=== PATIENT | male | born 1990 | race Caucasian/White ===

== ENCOUNTER 2018-01-06 23:18 | Emergency (ER) | payer MEDICARE, MEDICAID ==
[2018-01-07] MEDS: ONDANSETRON 4MG/2ML VIAL (J2405) IV (00:06)
[2018-01-07] MEDS: ACETAMINOPHEN TAB 650MG DOSE (2X325MG) PO (00:06)
[2018-01-07] MEDS: NS 1,000 ML IV (00:06)
[2018-01-07 00:33] LABS: BASO % 0.2 % (0.0-1.0); HEMATOCRIT 42.5 % (42.0-52.0); HEMOGLOBIN 14.5 g/dl (14.0-18.0); IMMATURE GRANULOCYTE % 0.5 % (0-3.0); LYMPH # 0.7 10^3/uL (1.5-6.5); LYMPH % 12.2 % (24.0-44.0); MEAN CORPUSCULAR HEMOGLOBIN 28.5 pg (27.0-33.0); MEAN CORPUSCULAR HGB CONC 34.1 g/dl (32.0-36.5); MEAN CORPUSCULAR VOLUME 83.5 fl (80.0-96.0); MONO # 0.8 10^3/uL (0.0-0.8); MONO % 13.7 % (0.0-5.0); NEUTROPHILS % 73.4 % (36.0-66.0); PLATELET COUNT, AUTOMATED 198 10^3/uL (150-450); RED BLOOD COUNT 5.09 10^6/uL (4.30-6.10); RED CELL DISTRIBUTION WIDTH 11.9 % (11.5-14.5); WHITE BLOOD COUNT 5.5 10^3/uL (4.0-10.0)
[2018-01-07 00:42] LABS: ALBUMIN 3.6 GM/DL (3.2-5.2); ALBUMIN/GLOBULIN RATIO 1.16 (1.00-1.93); ALKALINE PHOSPHATASE 75 U/L (45-117); ALT/SGPT 28 U/L (12-78); ANION GAP 11 MEQ/L (8-16); AST/SGOT 22 U/L (7-37); BILIRUBIN,DIRECT 0.2 MG/DL (0.0-0.2); BILIRUBIN,TOTAL 0.5 MG/DL (0.2-1.0); BLOOD UREA NITROGEN 18 MG/DL (7-18); CALCIUM LEVEL 8.2 MG/DL (8.5-10.1); CARBON DIOXIDE LEVEL 26 MEQ/L (21-32); CHLORIDE LEVEL 96 MEQ/L (98-107); CREATININE FOR GFR 1.07 MG/DL (0.70-1.30); GLOMERULAR FILTRATION RATE > 60.0 (>60); GLUCOSE, FASTING 89 MG/DL (70-100); LIPASE 162 U/L (73-393); POTASSIUM SERUM 3.7 MEQ/L (3.5-5.1); SODIUM LEVEL 133 MEQ/L (136-145); TOTAL PROTEIN 6.7 GM/DL (6.4-8.2)
[2018-01-07 00:44] LABS: LACTIC ACID SEPSIS PROTOCOL 1.1 MMOL/L (0.4-2.0)
[2018-01-07] MEDS ORDERED: GASTROGRAFIN SOLUTION 30ML (Q9963) As Ordered (00:55)
[2018-01-07] MEDS: GASTROGRAFIN SOLUTION 30ML PO ×2 (01:01→02:00)
[2018-01-07] MEDS ORDERED: ISOVUE-370 76% 100ML VIAL (Q9967) As Ordered (01:10)
[2018-01-07] MEDS ORDERED: METOCLOPRAMIDE INJ 10MG/2ML VIAL (J2765) As Ordered (01:29)
[2018-01-07] MEDS: METOCLOPRAMIDE INJ 10MG/2ML VIAL (J2765) IV (01:34)
[2018-01-07 03:16] LABS: KETONE, URINE AUTO RFX TRACE mg/dL (NEGATIVE); LEUKOCYTE ESTERASE UR AUTO RFX NEGATIVE (NEGATIVE); NITRITE, URINE AUTO RFX NEGATIVE (NEGATIVE); RBC, URINE AUTO RFX 2 /HPF (0-3); SPECIFIC GRAVITY UR AUTO RFX 1.025 (1.002-1.035); SQUAM EPITHELIAL CELL UR AURFX 0 /HPF (0-6); WBC, URINE AUTO RFX 1 /HPF (0-3)
== END 2018-01-07 04:45 | disposition home or self-care (01) ==
LOC: M ED 23:18
DX: K52.9 Noninfective gastroenteritis and colitis, unspecified (principal); J45.909 Unspecified asthma, uncomplicated; F12.10 Cannabis abuse, uncomplicated; Z79.899 Other long term (current) drug therapy; Z88.0 Allergy status to penicillin
CPT/HCPCS: J2405

== ENCOUNTER 2018-01-10 21:38 | Inpatient (IN) | payer MEDICARE ==
[2018-01-10 22:35] LABS: HEMOGLOBIN 13.8 g/dl (14.0-18.0); IMMATURE GRANULOCYTE % 0.6 % (0-3.0); LYMPH # 0.5 10^3/uL (1.5-6.5); LYMPH % 15.6 % (24.0-44.0); MEAN CORPUSCULAR HEMOGLOBIN 28.7 pg (27.0-33.0); MEAN CORPUSCULAR HGB CONC 35.4 g/dl (32.0-36.5); MEAN CORPUSCULAR VOLUME 81.1 fl (80.0-96.0); MONO # 0.2 10^3/uL (0.0-0.8); MONO % 5.3 % (0.0-5.0); NEUTROPHILS # 2.5 10^3/uL (1.8-7.7); NEUTROPHILS % 78.5 % (36.0-66.0); RED BLOOD COUNT 4.81 10^6/uL (4.30-6.10); RED CELL DISTRIBUTION WIDTH 11.9 % (11.5-14.5); WHITE BLOOD COUNT 3.2 10^3/uL (4.0-10.0)
[2018-01-10 22:46] LABS: ALBUMIN 2.9 GM/DL (3.2-5.2); ALBUMIN/GLOBULIN RATIO 0.85 (1.00-1.93); ALKALINE PHOSPHATASE 51 U/L (45-117); ALT/SGPT 40 U/L (12-78); ANION GAP 8 MEQ/L (8-16); AST/SGOT 63 U/L (7-37); BILIRUBIN,DIRECT 0.2 MG/DL (0.0-0.2); BILIRUBIN,TOTAL 0.5 MG/DL (0.2-1.0); BLOOD UREA NITROGEN 18 MG/DL (7-18); CALCIUM LEVEL 7.4 MG/DL (8.5-10.1); CARBON DIOXIDE LEVEL 27 MEQ/L (21-32); CHLORIDE LEVEL 93 MEQ/L (98-107); CREATININE FOR GFR 1.08 MG/DL (0.70-1.30); GLOMERULAR FILTRATION RATE > 60.0 (>60); GLUCOSE, FASTING 120 MG/DL (70-100); LIPASE 262 U/L (73-393); POTASSIUM SERUM 3.5 MEQ/L (3.5-5.1); SODIUM LEVEL 128 MEQ/L (136-145); TOTAL PROTEIN 6.3 GM/DL (6.4-8.2)
[2018-01-10 22:48] LABS: PLATELET COUNT, AUTOMATED 87 10^3/uL (150-450)
[2018-01-10 22:49] LABS: IMMATURE PLATELET FRACTION % 13.5 % (0.0-10.9)
[2018-01-10 23:16] LABS: LACTIC ACID SEPSIS PROTOCOL 1.3 MMOL/L (0.4-2.0)
[2018-01-10] MEDS: ONDANSETRON 4MG/2ML VIAL (J2405) IV (23:32)
[2018-01-10] MEDS: diphenhydrAMINE INJ 50MG/ML VIAL (J1200) IV (23:32)
[2018-01-10] MEDS: NS 1,000 ML IV (23:32)
[2018-01-10] MEDS: ACETAMINOPHEN 325 MG TAB PO (23:32)
[2018-01-10] MEDS: ALBUTEROL SULFATE 2.5 MG/0.5 ML INH NEB SOLN NEB (23:38)
[2018-01-10] MEDS ORDERED: guaiFENesin DM LIQ 10ML UD PO (23:45)
[2018-01-11] MEDS: CEFUROXIME SODIUM 1.5 GM in D5W MINI-BAG PLUS 50 ML IV (00:06)
[2018-01-11 00:19] LABS: VENOUS BASE EXCESS -2.6 (-2.0-2.0); VENOUS HCO3 22.7 MEQ/L (23.0-27.0); VENOUS O2 SATURATION 87.7 % (60.0-80.0); VENOUS PARTIAL PRESSURE CO2 41.3 mmHg (38.0-50.0); VENOUS PARTIAL PRESSURE O2 54.5 mmHg (30.0-50.0); VENOUS PH 7.358 UNITS (7.330-7.430); VENOUS STANDARD HCO3 22.1 MEQ/L
[2018-01-11] MEDS ORDERED: IBUPROFEN 800 MG TAB As Ordered (00:30)
[2018-01-11] MEDS ORDERED: IBUPROFEN 400 MG TAB As Ordered ×2 (00:31→00:57)
[2018-01-11] MEDS: IBUPROFEN 200 MG TAB PO (00:40)
[2018-01-11] MEDS ORDERED: MOXIFLOXACIN HCL 400 MG in APPROPRIATE DILUENT 1 EA IV (00:45)
[2018-01-11] MEDS: AZITHROMYCIN INJ 500 MG, VIAL MATE ADAPTER 1 EACH in D5W 250 ML IV (00:50)
[2018-01-11 00:54] LABS: INFLUENZA A AMPLIFICATION NEGATIVE (NEGATIVE); INFLUENZA B AMPLIFICATION NEGATIVE (NEGATIVE)
[2018-01-11] MEDS: IBUPROFEN 800 MG TAB PO (01:04)
[2018-01-11] MEDS: DILUENT IV (01:18)
[2018-01-11] MEDS: NS IV (01:18)
[2018-01-11] MEDS: NS 1,000 ML IV ×5 (02:42→23:37)
[2018-01-11] MEDS: metroNIDAZOLE 500 MG in APPROPRIATE DILUENT 1 EA IV ×2 (02:42→11:16)
[2018-01-11 07:15] LABS: HEMATOCRIT 34.9 % (42.0-52.0); MEAN CORPUSCULAR HEMOGLOBIN 28.7 pg (27.0-33.0); MEAN CORPUSCULAR HGB CONC 34.4 g/dl (32.0-36.5); MEAN CORPUSCULAR VOLUME 83.5 fl (80.0-96.0); RED BLOOD COUNT 4.18 10^6/uL (4.30-6.10); RED CELL DISTRIBUTION WIDTH 12.2 % (11.5-14.5)
[2018-01-11 07:16] LABS: PLATELET COUNT, AUTOMATED 87 10^3/uL (150-450)
[2018-01-11 07:41] LABS: ALBUMIN 2.4 GM/DL (3.2-5.2); ALBUMIN/GLOBULIN RATIO 0.86 (1.00-1.93); ALKALINE PHOSPHATASE 44 U/L (45-117); ALT/SGPT 48 U/L (12-78); ANION GAP 8 MEQ/L (8-16); AST/SGOT 86 U/L (7-37); BILIRUBIN,TOTAL 0.4 MG/DL (0.2-1.0); BLOOD UREA NITROGEN 12 MG/DL (7-18); CALCIUM LEVEL 6.6 MG/DL (8.5-10.1); CARBON DIOXIDE LEVEL 26 MEQ/L (21-32); CHLORIDE LEVEL 105 MEQ/L (98-107); CPK CREATINE PHOSPHOKINASE 581 U/L (39-308); CREATININE FOR GFR 0.97 MG/DL (0.70-1.30); GLOMERULAR FILTRATION RATE > 60.0 (>60); GLUCOSE, FASTING 124 MG/DL (70-100); POTASSIUM SERUM 3.4 MEQ/L (3.5-5.1); SODIUM LEVEL 139 MEQ/L (136-145); TOTAL PROTEIN 5.2 GM/DL (6.4-8.2)
[2018-01-11 07:42] LABS: CK-MB VALUE MASS 1.4 NG/ML (0.0-3.6); MB/CK RELATIVE INDEX 0.24 (< OR =4)
[2018-01-11] MEDS: LevoFLOXacin IV 500 MG in APPROPRIATE DILUENT 1 EA IV (09:29)
[2018-01-11] MEDS: ENOXAPARIN 40 MG/0.4 ML SYRINGE (J1650) SC (11:16)
[2018-01-11 13:26] LABS: REASON FOR REVIEW PLATELET MORPHOLOGY; SLIDE REVIEW Report; SOURCE PERIPHERAL SMEAR
[2018-01-11 13:42] LABS: D-DIMER QUANT 2359.4 ng/ml (<500)
[2018-01-11 13:58] LABS: CK-MB VALUE MASS 1.7 NG/ML (0.0-3.6); CPK CREATINE PHOSPHOKINASE 607 U/L (39-308); MB/CK RELATIVE INDEX 0.28 (< OR =4)
[2018-01-11] MEDS ORDERED: ISOVUE-370 76% 100ML VIAL (Q9967) As Ordered (14:20)
[2018-01-11] MEDS: AZTREONAM 2 GM in D5W MINI-BAG PLUS 50 ML IV ×2 (15:38→23:33)
[2018-01-11] MEDS: VANCOMYCIN HCL 1,000 MG, VIAL MATE ADAPTER 1 EACH in D5W 250 ML IV (16:08)
[2018-01-11] MEDS: ACETAMINOPHEN TAB 650MG DOSE (2X325MG) PO ×3 (16:09→21:38)
[2018-01-11 19:30] LABS: CPK CREATINE PHOSPHOKINASE 681 U/L (39-308); TROPONIN I 0.23 NG/ML (< 0.10)
[2018-01-11 19:44] LABS: CK-MB VALUE MASS 1.3 NG/ML (0.0-3.6); MB/CK RELATIVE INDEX 0.19 (< OR =4)
[2018-01-11] MEDS: ONDANSETRON 4 MG TAB (S0181) PO (21:10)
[2018-01-11] MEDS ORDERED: AZITHROMYCIN INJ 500 MG, VIAL MATE ADAPTER 1 EACH in D5W 250 ML IV (23:00)
[2018-01-12] MEDS: VANCOMYCIN HCL 1,000 MG, VIAL MATE ADAPTER 1 EACH in D5W 250 ML IV ×5 (00:35→23:03)
[2018-01-12 01:41] LABS: BEDSIDE GLUCOSE 102 MG/DL (70-105)
[2018-01-12] MEDS ORDERED: IPRATROPIUM 0.5MG/ALBUTEROL 2.5MG INH SOL UD 3ML (DUONEB)(J7620) NEB (01:45)
[2018-01-12 04:43] LABS: ABG BASE EXCESS -2.7 (-2.0-2.0); ABG HCO3 21.2 MEQ/L (22.0-26.0); ABG O2 SATURATION 95.8 % (95.0-99.0); ABG PARTIAL PRESSURE CO2 33.8 mmHg (35.0-45.0); ABG PARTIAL PRESSURE O2 78.2 mmHg (75.0-100.0); ABG STANDARD HCO3 22.2 MEQ/L (22.0-26.0); ABG TOTAL CO2 22.2 MEQ/L (22.0-29.0); ABG pH (ARTERIAL) 7.415 UNITS (7.350-7.450)
[2018-01-12 05:23] LABS: BEDSIDE GLUCOSE 90 MG/DL (70-105)
[2018-01-12 05:51] LABS: HEMATOCRIT 34.6 % (42.0-52.0); HEMOGLOBIN 11.8 g/dl (14.0-18.0); MEAN CORPUSCULAR HEMOGLOBIN 28.5 pg (27.0-33.0); MEAN CORPUSCULAR HGB CONC 34.1 g/dl (32.0-36.5); MEAN CORPUSCULAR VOLUME 83.6 fl (80.0-96.0); RED BLOOD COUNT 4.14 10^6/uL (4.30-6.10); RED CELL DISTRIBUTION WIDTH 12.7 % (11.5-14.5); WHITE BLOOD COUNT 2.7 10^3/uL (4.0-10.0)
[2018-01-12 05:54] LABS: IMMATURE PLATELET FRACTION % 6.3 % (0.0-10.9); PLATELET COUNT, AUTOMATED 95 10^3/uL (150-450)
[2018-01-12] MEDS: NS 1,000 ML IV ×3 (06:03→22:24)
[2018-01-12] MEDS: AZTREONAM 2 GM in D5W MINI-BAG PLUS 50 ML IV ×3 (06:03→22:24)
[2018-01-12] MEDS: ACETAMINOPHEN TAB 650MG DOSE (2X325MG) PO ×4 (06:04→23:03)
[2018-01-12 06:20] LABS: ALBUMIN 2.1 GM/DL (3.2-5.2); ALBUMIN/GLOBULIN RATIO 0.78 (1.00-1.93); ALKALINE PHOSPHATASE 41 U/L (45-117); ALT/SGPT 40 U/L (12-78); ANION GAP 9 MEQ/L (8-16); AST/SGOT 66 U/L (7-37); BILIRUBIN,TOTAL 0.3 MG/DL (0.2-1.0); BLOOD UREA NITROGEN 6 MG/DL (7-18); CALCIUM LEVEL 6.8 MG/DL (8.5-10.1); CARBON DIOXIDE LEVEL 23 MEQ/L (21-32); CHLORIDE LEVEL 107 MEQ/L (98-107); CREATININE FOR GFR 0.62 MG/DL (0.70-1.30); GLOMERULAR FILTRATION RATE > 60.0 (>60); GLUCOSE, FASTING 87 MG/DL (70-100); POTASSIUM SERUM 3.1 MEQ/L (3.5-5.1); SODIUM LEVEL 139 MEQ/L (136-145); TOTAL PROTEIN 4.8 GM/DL (6.4-8.2)
[2018-01-12] MEDS: IPRATROPIUM 0.5MG/ALBUTEROL 2.5MG INH SOL UD 3ML (DUONEB)(J7620) NEB ×4 (07:22→23:54)
[2018-01-12 08:36] LABS: MAGNESIUM LEVEL 2.3 MG/DL (1.8-2.4)
[2018-01-12] MEDS: POTASSIUM CHLORIDE 10 MEQ SR TABLET PO (08:50)
[2018-01-12 13:30] LABS: HIV 1&2 SCREEN CENTAUR NEGATIVE (NEGATIVE)
[2018-01-12 16:16] LABS: VANCOMYCIN LEVEL TROUGH 7.9 UG/ML (10.0-20.0)
[2018-01-12] MEDS: ONDANSETRON 4 MG TAB (S0181) PO (23:02)
[2018-01-12] MEDS ORDERED: ONDANSETRON 4MG/2ML VIAL (J2405) As Ordered (23:09)
[2018-01-12] MEDS: ONDANSETRON 4MG/2ML VIAL (J2405) IV (23:45)
[2018-01-13] MEDS: VANCOMYCIN HCL 1,000 MG, VIAL MATE ADAPTER 1 EACH in D5W 250 ML IV ×4 (05:31→23:31)
[2018-01-13] MEDS: NS 1,000 ML IV ×4 (05:31→22:58)
[2018-01-13] MEDS: ONDANSETRON 4MG/2ML VIAL (J2405) IV ×2 (05:36→23:25)
[2018-01-13 05:50] LABS: HEMATOCRIT 36.2 % (42.0-52.0); HEMOGLOBIN 12.3 g/dl (14.0-18.0); MEAN CORPUSCULAR HEMOGLOBIN 28.4 pg (27.0-33.0); MEAN CORPUSCULAR VOLUME 83.6 fl (80.0-96.0); PLATELET COUNT, AUTOMATED 136 10^3/uL (150-450); RED BLOOD COUNT 4.33 10^6/uL (4.30-6.10); RED CELL DISTRIBUTION WIDTH 12.7 % (11.5-14.5); WHITE BLOOD COUNT 2.8 10^3/uL (4.0-10.0)
[2018-01-13 06:05] LABS: ALBUMIN 2.2 GM/DL (3.2-5.2); ALBUMIN/GLOBULIN RATIO 0.67 (1.00-1.93); ALKALINE PHOSPHATASE 51 U/L (45-117); ALT/SGPT 39 U/L (12-78); ANION GAP 6 MEQ/L (8-16); AST/SGOT 58 U/L (7-37); BILIRUBIN,TOTAL 0.3 MG/DL (0.2-1.0); BLOOD UREA NITROGEN 3 MG/DL (7-18); CALCIUM LEVEL 7.1 MG/DL (8.5-10.1); CARBON DIOXIDE LEVEL 29 MEQ/L (21-32); CHLORIDE LEVEL 102 MEQ/L (98-107); CREATININE FOR GFR 0.72 MG/DL (0.70-1.30); GLOMERULAR FILTRATION RATE > 60.0 (>60); GLUCOSE, FASTING 97 MG/DL (70-100); POTASSIUM SERUM 3.3 MEQ/L (3.5-5.1); SODIUM LEVEL 137 MEQ/L (136-145); TOTAL PROTEIN 5.5 GM/DL (6.4-8.2)
[2018-01-13] MEDS: AZTREONAM 2 GM in D5W MINI-BAG PLUS 50 ML IV (06:35)
[2018-01-13] MEDS: IPRATROPIUM 0.5MG/ALBUTEROL 2.5MG INH SOL UD 3ML (DUONEB)(J7620) NEB ×2 (07:18→16:35)
[2018-01-13] MEDS: IBUPROFEN 200 MG TAB PO (08:09)
[2018-01-13 10:08] LABS: LACTIC ACID SEPSIS PROTOCOL 1.8 MMOL/L (0.4-2.0)
[2018-01-13 10:08] LABS: C REACTIVE PROTEIN QUANTITATIV 9.37 MG/DL (0.00-0.30); CPK CREATINE PHOSPHOKINASE 579 U/L (39-308); TROPONIN I 0.06 NG/ML (< 0.10)
[2018-01-13 10:09] LABS: MB/CK RELATIVE INDEX 0.17 (< OR =4)
[2018-01-13] MEDS: MEROPENEM INJ 1 GM in APPROPRIATE DILUENT 1 EA IV ×2 (10:40→19:24)
[2018-01-13 17:12] LABS: VANCOMYCIN LEVEL TROUGH 15.7 UG/ML (10.0-20.0)
[2018-01-14] MEDS: IPRATROPIUM 0.5MG/ALBUTEROL 2.5MG INH SOL UD 3ML (DUONEB)(J7620) NEB ×4 (00:13→23:29)
[2018-01-14] MEDS: MEROPENEM INJ 1 GM in APPROPRIATE DILUENT 1 EA IV ×3 (02:19→18:30)
[2018-01-14 05:04] LABS: HEMOGLOBIN 11.3 g/dl (14.0-18.0); MEAN CORPUSCULAR HEMOGLOBIN 28.4 pg (27.0-33.0); MEAN CORPUSCULAR HGB CONC 34.2 g/dl (32.0-36.5); MEAN CORPUSCULAR VOLUME 82.9 fl (80.0-96.0); PLATELET COUNT, AUTOMATED 155 10^3/uL (150-450); RED BLOOD COUNT 3.98 10^6/uL (4.30-6.10); RED CELL DISTRIBUTION WIDTH 12.7 % (11.5-14.5); WHITE BLOOD COUNT 2.2 10^3/uL (4.0-10.0)
[2018-01-14 05:19] LABS: ALBUMIN 2.1 GM/DL (3.2-5.2); ALBUMIN/GLOBULIN RATIO 0.72 (1.00-1.93); ALKALINE PHOSPHATASE 55 U/L (45-117); ALT/SGPT 57 U/L (12-78); ANION GAP 6 MEQ/L (8-16); AST/SGOT 80 U/L (7-37); BILIRUBIN,TOTAL 0.3 MG/DL (0.2-1.0); BLOOD UREA NITROGEN < 1 MG/DL (7-18); CALCIUM LEVEL 6.9 MG/DL (8.5-10.1); CARBON DIOXIDE LEVEL 29 MEQ/L (21-32); CHLORIDE LEVEL 107 MEQ/L (98-107); CREATININE FOR GFR 0.45 MG/DL (0.70-1.30); GLOMERULAR FILTRATION RATE > 60.0 (>60); GLUCOSE, FASTING 99 MG/DL (70-100); SODIUM LEVEL 142 MEQ/L (136-145)
[2018-01-14 05:29] LABS: POTASSIUM SERUM 2.6 MEQ/L (3.5-5.1)
[2018-01-14] MEDS: POTASSIUM CHLORIDE 10 MEQ SR TABLET PO ×3 (06:02→17:28)
[2018-01-14] MEDS: KCL 40MEQ in NS 1000ML 1,000 ML IV (06:02)
[2018-01-14] MEDS: KCL 10MEQ/100ML SWI *ED/ICU* 10 MEQ in APPROPRIATE DILUENT 1 EA IV (06:02)
[2018-01-14] MEDS: VANCOMYCIN HCL 1,000 MG, VIAL MATE ADAPTER 1 EACH in D5W 250 ML IV ×4 (06:03→23:22)
[2018-01-14 08:21] LABS: MAGNESIUM LEVEL 2.2 MG/DL (1.8-2.4)
[2018-01-14] MEDS: KCL 20MEQ in NS 1000ML 1,000 ML IV ×2 (09:33→15:54)
[2018-01-14 09:57] LABS: ANION GAP 4 MEQ/L (8-16); BLOOD UREA NITROGEN < 1 MG/DL (7-18); CARBON DIOXIDE LEVEL 30 MEQ/L (21-32); CHLORIDE LEVEL 108 MEQ/L (98-107); CREATININE FOR GFR 0.53 MG/DL (0.70-1.30); GLOMERULAR FILTRATION RATE > 60.0 (>60); GLUCOSE, FASTING 109 MG/DL (70-100); MAGNESIUM LEVEL 2.2 MG/DL (1.8-2.4); POTASSIUM SERUM 3.2 MEQ/L (3.5-5.1); SODIUM LEVEL 142 MEQ/L (136-145)
[2018-01-14 14:13] LABS: ANION GAP 6 MEQ/L (8-16); BLOOD UREA NITROGEN < 1 MG/DL (7-18); CALCIUM LEVEL 7.4 MG/DL (8.5-10.1); CARBON DIOXIDE LEVEL 30 MEQ/L (21-32); CHLORIDE LEVEL 108 MEQ/L (98-107); CREATININE FOR GFR 0.53 MG/DL (0.70-1.30); GLOMERULAR FILTRATION RATE > 60.0 (>60); GLUCOSE, FASTING 97 MG/DL (70-100); MAGNESIUM LEVEL 2.3 MG/DL (1.8-2.4); POTASSIUM SERUM 3.4 MEQ/L (3.5-5.1); SODIUM LEVEL 144 MEQ/L (136-145)
[2018-01-14 14:36] LABS: TISSUE TRANSGLUTAMINASE IgA <2 U/mL (0-3)
[2018-01-14 19:01] LABS: OSMOLALITY URINE 261 MOSM/KG (500-800)
[2018-01-14 19:08] LABS: CHLORIDE,RANDOM URINE 121 MEQ/L; CREATININE,RANDOM URINE 20.5 MG/DL; POTASSIUM RANDOM URINE 2.4 MEQ/L; SODIUM,RANDOM URINE 115 MEQ/L; TOTAL PROTEIN,RANDOM URINE 10.1 MG/DL (0.0-12.0)
[2018-01-14 21:13] LABS: ANION GAP 3 MEQ/L (8-16); BLOOD UREA NITROGEN 1 MG/DL (7-18); CALCIUM LEVEL 7.2 MG/DL (8.5-10.1); CARBON DIOXIDE LEVEL 30 MEQ/L (21-32); CHLORIDE LEVEL 109 MEQ/L (98-107); CREATININE FOR GFR 0.48 MG/DL (0.70-1.30); GLOMERULAR FILTRATION RATE > 60.0 (>60); GLUCOSE, FASTING 103 MG/DL (70-100); IMMUNOGLOBULIN G 696 MG/DL (681-1648); IMMUNOGLOBULIN M 43.4 MG/DL (40-230); POTASSIUM SERUM 3.9 MEQ/L (3.5-5.1); SODIUM LEVEL 142 MEQ/L (136-145)
[2018-01-14] MEDS: ACETAMINOPHEN TAB 650MG DOSE (2X325MG) PO (23:22)
[2018-01-14] MEDS: ONDANSETRON 4MG/2ML VIAL (J2405) IV (23:45)
[2018-01-15] MEDS: KCL 20MEQ in NS 1000ML 1,000 ML IV ×3 (03:54→15:49)
[2018-01-15] MEDS: MEROPENEM INJ 1 GM in APPROPRIATE DILUENT 1 EA IV ×3 (03:54→18:11)
[2018-01-15] MEDS: IBUPROFEN 400 MG TAB PO (04:04)
[2018-01-15] MEDS: ONDANSETRON 4MG/2ML VIAL (J2405) IV ×2 (04:04→12:31)
[2018-01-15] MEDS: VANCOMYCIN HCL 1,000 MG, VIAL MATE ADAPTER 1 EACH in D5W 250 ML IV (06:28)
[2018-01-15 06:30] LABS: HEMATOCRIT 35.7 % (42.0-52.0); HEMOGLOBIN 12.2 g/dl (14.0-18.0); MEAN CORPUSCULAR HEMOGLOBIN 28.6 pg (27.0-33.0); MEAN CORPUSCULAR HGB CONC 34.2 g/dl (32.0-36.5); MEAN CORPUSCULAR VOLUME 83.8 fl (80.0-96.0); PLATELET COUNT, AUTOMATED 188 10^3/uL (150-450); RED BLOOD COUNT 4.26 10^6/uL (4.30-6.10); RED CELL DISTRIBUTION WIDTH 13.1 % (11.5-14.5); WHITE BLOOD COUNT 2.4 10^3/uL (4.0-10.0)
[2018-01-15 06:53] LABS: ALBUMIN 2.4 GM/DL (3.2-5.2); ALBUMIN/GLOBULIN RATIO 0.69 (1.00-1.93); ALKALINE PHOSPHATASE 70 U/L (45-117); ALT/SGPT 107 U/L (12-78); ANION GAP 6 MEQ/L (8-16); AST/SGOT 99 U/L (7-37); BILIRUBIN,TOTAL 0.4 MG/DL (0.2-1.0); BLOOD UREA NITROGEN < 1 MG/DL (7-18); C REACTIVE PROTEIN QUANTITATIV 4.27 MG/DL (0.00-0.30); CALCIUM LEVEL 7.5 MG/DL (8.5-10.1); CARBON DIOXIDE LEVEL 28 MEQ/L (21-32); CHLORIDE LEVEL 109 MEQ/L (98-107); CREATININE FOR GFR 0.45 MG/DL (0.70-1.30); GLOMERULAR FILTRATION RATE > 60.0 (>60); GLUCOSE, FASTING 96 MG/DL (70-100); POTASSIUM SERUM 3.7 MEQ/L (3.5-5.1); SODIUM LEVEL 143 MEQ/L (136-145); TOTAL PROTEIN 5.9 GM/DL (6.4-8.2)
[2018-01-15] MEDS: IPRATROPIUM 0.5MG/ALBUTEROL 2.5MG INH SOL UD 3ML (DUONEB)(J7620) NEB ×3 (08:15→23:18)
[2018-01-15] MEDS: MONTELUKAST 10 MG TAB PO (09:42)
[2018-01-15] MEDS: POTASSIUM CHLORIDE 10 MEQ SR TABLET PO (09:42)
[2018-01-15] MEDS: PREPARATION H SUPP (HEMORRHOID) PR ×2 (12:36→22:28)
[2018-01-15] MEDS: ADVAIR HFA 230/21MCG INHALER INH ×2 (14:01→21:14)
[2018-01-15] MEDS: ONDANSETRON 4 MG TAB (S0181) PO (14:49)
[2018-01-16] MEDS: MEROPENEM INJ 1 GM in APPROPRIATE DILUENT 1 EA IV ×3 (02:38→17:59)
[2018-01-16] MEDS: KCL 20MEQ in NS 1000ML 1,000 ML IV (06:20)
[2018-01-16] MEDS: ADVAIR HFA 230/21MCG INHALER INH ×2 (07:48→20:42)
[2018-01-16] MEDS: IPRATROPIUM 0.5MG/ALBUTEROL 2.5MG INH SOL UD 3ML (DUONEB)(J7620) NEB ×2 (07:48→15:13)
[2018-01-16 07:55] LABS: HEMATOCRIT 38.9 % (42.0-52.0); HEMOGLOBIN 13.3 g/dl (14.0-18.0); MEAN CORPUSCULAR HEMOGLOBIN 28.5 pg (27.0-33.0); MEAN CORPUSCULAR HGB CONC 34.2 g/dl (32.0-36.5); MEAN CORPUSCULAR VOLUME 83.3 fl (80.0-96.0); PLATELET COUNT, AUTOMATED 268 10^3/uL (150-450); RED BLOOD COUNT 4.67 10^6/uL (4.30-6.10); RED CELL DISTRIBUTION WIDTH 12.9 % (11.5-14.5)
[2018-01-16 08:29] LABS: ALBUMIN 2.8 GM/DL (3.2-5.2); ALBUMIN/GLOBULIN RATIO 0.85 (1.00-1.93); ALKALINE PHOSPHATASE 88 U/L (45-117); ALT/SGPT 159 U/L (12-78); ANION GAP 5 MEQ/L (8-16); AST/SGOT 101 U/L (7-37); BILIRUBIN,TOTAL 0.7 MG/DL (0.2-1.0); BLOOD UREA NITROGEN 1 MG/DL (7-18); C REACTIVE PROTEIN QUANTITATIV 2.52 MG/DL (0.00-0.30); CALCIUM LEVEL 8.2 MG/DL (8.5-10.1); CARBON DIOXIDE LEVEL 31 MEQ/L (21-32); CHLORIDE LEVEL 106 MEQ/L (98-107); CREATININE FOR GFR 0.52 MG/DL (0.70-1.30); GLOMERULAR FILTRATION RATE > 60.0 (>60); GLUCOSE, FASTING 104 MG/DL (70-100); MAGNESIUM LEVEL 2.1 MG/DL (1.8-2.4); SODIUM LEVEL 142 MEQ/L (136-145); TOTAL PROTEIN 6.1 GM/DL (6.4-8.2)
[2018-01-16] MEDS: MONTELUKAST 10 MG TAB PO (09:11)
[2018-01-16] MEDS: PREPARATION H SUPP (HEMORRHOID) PR ×2 (09:11→20:45)
[2018-01-17] MEDS: IPRATROPIUM 0.5MG/ALBUTEROL 2.5MG INH SOL UD 3ML (DUONEB)(J7620) NEB ×2 (00:49→08:00)
[2018-01-17] MEDS: MEROPENEM INJ 1 GM in APPROPRIATE DILUENT 1 EA IV ×2 (03:19→11:49)
[2018-01-17 05:57] LABS: HEMATOCRIT 41.3 % (42.0-52.0); HEMOGLOBIN 13.7 g/dl (14.0-18.0); MEAN CORPUSCULAR HEMOGLOBIN 28.4 pg (27.0-33.0); MEAN CORPUSCULAR HGB CONC 33.2 g/dl (32.0-36.5); MEAN CORPUSCULAR VOLUME 85.5 fl (80.0-96.0); PLATELET COUNT, AUTOMATED 332 10^3/uL (150-450); RED BLOOD COUNT 4.83 10^6/uL (4.30-6.10); RED CELL DISTRIBUTION WIDTH 13.1 % (11.5-14.5); WHITE BLOOD COUNT 4.3 10^3/uL (4.0-10.0)
[2018-01-17 06:16] LABS: ALBUMIN 2.8 GM/DL (3.2-5.2); ALBUMIN/GLOBULIN RATIO 0.72 (1.00-1.93); ALKALINE PHOSPHATASE 102 U/L (45-117); ALT/SGPT 179 U/L (12-78); ANION GAP 4 MEQ/L (8-16); AST/SGOT 92 U/L (7-37); BILIRUBIN,TOTAL 0.6 MG/DL (0.2-1.0); BLOOD UREA NITROGEN 5 MG/DL (7-18); C REACTIVE PROTEIN QUANTITATIV 1.55 MG/DL (0.00-0.30); CALCIUM LEVEL 8.8 MG/DL (8.5-10.1); CARBON DIOXIDE LEVEL 35 MEQ/L (21-32); CHLORIDE LEVEL 102 MEQ/L (98-107); CREATININE FOR GFR 0.53 MG/DL (0.70-1.30); GLOMERULAR FILTRATION RATE > 60.0 (>60); GLUCOSE, FASTING 94 MG/DL (70-100); MAGNESIUM LEVEL 2.5 MG/DL (1.8-2.4); POTASSIUM SERUM 4.2 MEQ/L (3.5-5.1); SODIUM LEVEL 141 MEQ/L (136-145); TOTAL PROTEIN 6.7 GM/DL (6.4-8.2)
[2018-01-17] MEDS: ADVAIR HFA 230/21MCG INHALER INH (09:08)
[2018-01-17] MEDS: PREPARATION H SUPP (HEMORRHOID) PR (09:10)
[2018-01-17] MEDS: MONTELUKAST 10 MG TAB PO (09:10)
[2018-01-18 00:06] LABS: OSMOLARITY STOOL 281 mOsmol/kg (Not Estab.)
== END 2018-01-17 15:02 | disposition home or self-care (01) | DRG 871 ==
LOC: M ED INP 01-11 00:43 → M MSPAV 01-15 13:05 → M PCU 01-11 15:46 → M ED 21:38
DX: A41.9 Sepsis, unspecified organism (principal); J18.9 Pneumonia, unspecified organism; J96.01 Acute respiratory failure with hypoxia; A08.2 Adenoviral enteritis; E87.1 Hypo-osmolality and hyponatremia; D61.818 Other pancytopenia; J45.30 Mild persistent asthma, uncomplicated; H93.13 Tinnitus, bilateral; R91.8 Other nonspecific abnormal finding of lung field; D69.6 Thrombocytopenia, unspecified; D72.819 Decreased white blood cell count, unspecified; Z87.891 Personal history of nicotine dependence; H53.8 Other visual disturbances; Z79.899 Other long term (current) drug therapy; Z88.0 Allergy status to penicillin

== ENCOUNTER 2018-06-03 21:44 | Emergency (ER) | payer MEDICARE ==
[2018-06-03] MEDS: PANTOPRAZOLE 40MG INJ (PROTONIX) (C9113) IV (22:30)
[2018-06-03] MEDS: NS 1,000 ML IV (22:30)
[2018-06-03] MEDS: KETOROLAC 30 MG/ML VIAL (J1885) IV (22:30)
[2018-06-03] MEDS: ONDANSETRON 4MG/2ML VIAL (J2405) IV (22:30)
[2018-06-03 22:31] LABS: BASO % 0.3 % (0.0-1.0); EOS # 0.6 10^3/uL (0.0-0.50); HEMATOCRIT 43.9 % (42.0-52.0); IMMATURE GRANULOCYTE % 0.3 % (0-3.0); LYMPH # 3.2 10^3/uL (1.5-6.5); LYMPH % 33.9 % (24.0-44.0); MEAN CORPUSCULAR HGB CONC 34.2 g/dl (32.0-36.5); MEAN CORPUSCULAR VOLUME 84.7 fl (80.0-96.0); MONO # 0.7 10^3/uL (0.0-0.8); MONO % 7.4 % (0.0-5.0); NEUTROPHILS % 52.1 % (36.0-66.0); PLATELET COUNT, AUTOMATED 266 10^3/uL (150-450); RED BLOOD COUNT 5.18 10^6/uL (4.30-6.10); RED CELL DISTRIBUTION WIDTH 11.8 % (11.5-14.5); WHITE BLOOD COUNT 9.6 10^3/uL (4.0-10.0)
[2018-06-03 22:44] LABS: ALBUMIN 3.9 GM/DL (3.2-5.2); ALBUMIN/GLOBULIN RATIO 1.15 (1.00-1.93); ALKALINE PHOSPHATASE 81 U/L (45-117); ALT/SGPT 25 U/L (12-78); ANION GAP 7 MEQ/L (8-16); AST/SGOT 15 U/L (7-37); BILIRUBIN,DIRECT < 0.1 MG/DL (0.0-0.2); BILIRUBIN,TOTAL 0.3 MG/DL (0.2-1.0); BLOOD UREA NITROGEN 14 MG/DL (7-18); CALCIUM LEVEL 8.5 MG/DL (8.5-10.1); CARBON DIOXIDE LEVEL 29 MEQ/L (21-32); CHLORIDE LEVEL 104 MEQ/L (98-107); CREATININE FOR GFR 1.33 MG/DL (0.70-1.30); GLOMERULAR FILTRATION RATE > 60.0 (>60); GLUCOSE, FASTING 118 MG/DL (70-100); LIPASE 120 U/L (73-393); POTASSIUM SERUM 3.5 MEQ/L (3.5-5.1); SODIUM LEVEL 140 MEQ/L (136-145); TOTAL PROTEIN 7.3 GM/DL (6.4-8.2)
[2018-06-03 23:15] LABS: INR 0.95; PROTHROMBIN TIME 12.8 SECONDS (12.1-14.4)
== END 2018-06-04 | disposition home or self-care (01) ==
LOC: M ED 06-04
DX: K52.9 Noninfective gastroenteritis and colitis, unspecified (principal); G89.29 Other chronic pain; Z87.891 Personal history of nicotine dependence; Z88.0 Allergy status to penicillin
CPT/HCPCS: C9113

== ENCOUNTER 2018-07-27 02:59 | Emergency (ER) | payer OTHER, MEDICARE ==
[2018-07-27] MEDS: predniSONE 20 MG TAB PO (05:06)
[2018-07-27] MEDS: ALBUTEROL 90 MCG/ACT 8GM HFA INHALER INH (05:06)
== END 2018-07-27 05:12 | disposition home or self-care (01) ==
LOC: M ED 02:59
DX: J20.9 Acute bronchitis, unspecified (principal); J98.4 Other disorders of lung; Z87.01 Personal history of pneumonia (recurrent); F12.10 Cannabis abuse, uncomplicated; Z88.0 Allergy status to penicillin
CPT/HCPCS: 71046

== ENCOUNTER 2018-07-31 12:27 | Emergency (ER) | payer OTHER | END 2018-07-31 13:32 | disposition home or self-care (01) | LOC: M ED 12:27 | DX: L03.032 Cellulitis of left toe (principal); F41.9 Anxiety disorder, unspecified; F32.9 Major depressive disorder, single episode, unspecified; F43.10 Post-traumatic stress disorder, unspecified; R56.9 Unspecified convulsions; M54.9 Dorsalgia, unspecified; Z88.0 Allergy status to penicillin | CPT/HCPCS: 99284 ==

== ENCOUNTER 2018-09-04 13:59 | Emergency (ER) | payer OTHER | END 2018-09-04 16:13 | disposition home or self-care (01) | LOC: M ED 13:59 | DX: F43.21 Adjustment disorder with depressed mood (principal); J45.909 Unspecified asthma, uncomplicated; F41.9 Anxiety disorder, unspecified; F33.9 Major depressive disorder, recurrent, unspecified | CPT/HCPCS: 99284 ==

== ENCOUNTER 2019-01-24 10:56 | Emergency (ER) | payer MEDICARE, OTHER ==
[~2019-01-24] VITALS: Ht 172.7 cm; Wt 68.2 kg
[~2019-01-24 10:56] MED LIST: ADVA230A INH; ALBU17IN2 INH; GUAIDM5UD PO; IBUPOTC PO; MONT10TA2 PO; MOTR200T44 PO; MUPI2OI TOP; PRED20TA PO; REGL10TA6 PO; VENTAER IN; VENTAER INH; ZOFR4TAB14 PO
[2019-01-24] MEDS ORDERED: BUPR1TAB52 PO (11:13)
[2019-01-24] MEDS ORDERED: NS 1,000 ML IV ONE (11:30)
[2019-01-24 11:37] LABS: BASO % 0.4 % (0.0-1.0); EOS % 0.7 % (0.0-3.0); HEMATOCRIT 49.4 % (42.0-52.0); HEMOGLOBIN 16.8 g/dl (13.5-17.5); LYMPH # 1.2 10^3/uL (1.5-6.5); MEAN CORPUSCULAR HEMOGLOBIN 29.5 pg (27.0-33.0); MEAN CORPUSCULAR VOLUME 86.8 fl (80.0-96.0); MONO # 0.4 10^3/uL (0.0-0.8); MONO % 6.2 % (0.0-5.0); NEUTROPHILS % 71.5 % (36.0-66.0); PLATELET COUNT, AUTOMATED 200 10^3/uL (150-450); RED BLOOD COUNT 5.69 10^6/uL (4.30-6.10); WHITE BLOOD COUNT 5.6 10^3/uL (4.0-10.0)
[2019-01-24] MEDS ORDERED: ONDANSETRON 4MG/2ML VIAL (J2405) IV ONE (11:45)
[2019-01-24] MEDS ORDERED: KETOROLAC 30 MG/ML VIAL (J1885) IV ONE (11:45)
[2019-01-24 12:11] LABS: ALBUMIN 4.1 GM/DL (3.2-5.2); ALT/SGPT 24 U/L (12-78); BILIRUBIN,DIRECT 0.2 MG/DL (0.0-0.2); BILIRUBIN,TOTAL 0.7 MG/DL (0.2-1.0); BLOOD UREA NITROGEN 24 MG/DL (7-18); CALCIUM LEVEL 8.8 MG/DL (8.5-10.1); CARBON DIOXIDE LEVEL 26 MEQ/L (21-32); CHLORIDE LEVEL 105 MEQ/L (98-107); CREATININE FOR GFR 0.96 MG/DL (0.70-1.30); GLOMERULAR FILTRATION RATE > 60.0 (>60); GLUCOSE, FASTING 74 MG/DL (70-100); LIPASE 95 U/L (73-393); POTASSIUM SERUM 3.8 MEQ/L (3.5-5.1); SODIUM LEVEL 142 MEQ/L (136-145); TOTAL PROTEIN 7.1 GM/DL (6.4-8.2)
[2019-01-24] MEDS ORDERED: ISOVUE-370 76% 100ML VIAL (Q9967) As Ordered ONE (12:18)
[2019-01-24 12:38] LABS: CK-MB VALUE MASS < 1.0 NG/ML (<3.6); CPK CREATINE PHOSPHOKINASE 97 U/L (39-308); MB/CK RELATIVE INDEX 1.03 (< OR =4); TROPONIN I < 0.02 NG/ML (< 0.10)
--- NOTE | 2019-01-24 13:10 | REP ---
CT of the abdomen and pelvis with IV contrast, without bowel contrast: Comparison is 01/07/2018. The visualized lung zuniga are unremarkable. The hepatic parenchyma, gallbladder, pancreas, spleen, adrenals, kidneys and abdominal aorta are unremarkable. There is no bowel distension or obstruction. However, I cannot find any colonic loops in the abdomen on the right. The entire colon appears to be in the abdomen on the left. There appear to be small bowel loops in the abdomen on the right. This is suggest a malrotation. I recommend barium enema or small bowel follow-through study for confirmation. Pelvis: The appendix is identified in the midline on image 101 and is unremarkable. There is no ascites or adenopathy. The bladder is unremarkable. Pelvis: The bladder is unremarkable. There is no ascites or adenopathy. Impression: No bowel distension or obstruction. 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 This could be confirmed with a barium enema or small bowel follow-through is study. Otherwise, negative CT of the abdomen and pelvis. Half Electronically Signed by Pasquale Ferrell MD 01/24/2019 01:02 P
[2019-01-24 13:18] LABS: ALBUMIN 3.7 GM/DL (3.2-5.2); BILIRUBIN,DIRECT 0.2 MG/DL (0.0-0.2); BILIRUBIN,TOTAL 0.6 MG/DL (0.2-1.0); TOTAL PROTEIN 6.5 GM/DL (6.4-8.2)
[2019-01-24] MEDS ORDERED: ZOFR4TAB16 PO (13:52)
[2019-01-24 14:09] VITALS: BP 117/61
--- NOTE | 2019-01-24 20:05 | ECGEPIP ---
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
--- NOTE | 2019-01-25 16:01 | ED PDOC ---
Post-Departure Follow-Up certified letter sent to pt re formal read of ct abd/p. please see read. needs f u. please find out where he established and fax report thereBrandon Fairbanks MD Jan 25, 2019 16:01
== END 2019-01-24 14:11 | disposition home or self-care (01) ==
LOC: M ED 10:56 → EDBD 10:56 → M ED 14:11
DX: K52.9 Noninfective gastroenteritis and colitis, unspecified (principal); J45.909 Unspecified asthma, uncomplicated; Z87.442 Personal history of urinary calculi; Z79.899 Other long term (current) drug therapy; Z88.0 Allergy status to penicillin
CPT/HCPCS: 36415; 74177; 80048; 80076; 82550; 82553; 83605; 83690; 84484; 85025; 93005; 96361; 96374; 96375; 99284; J1885; J2405; Q9967

== ENCOUNTER → 2019-04-07 | Outpatient (REF) | payer MEDICARE ==
[~2019-04-07] MED LIST changes: +BUPR1TAB52 PO; +ZOFR4TAB16 PO
[2019-04-07 13:30] LABS: BASO % 0.6 % (0.0-1.0); EOS # 0.6 10^3/uL (0.0-0.50); EOS % 12.3 % (0.0-3.0); HEMATOCRIT 46.6 % (42.0-52.0); LYMPH # 1.8 10^3/uL (1.5-6.5); LYMPH % 38.8 % (24.0-44.0); MEAN CORPUSCULAR HEMOGLOBIN 29.5 pg (27.0-33.0); MEAN CORPUSCULAR HGB CONC 34.3 g/dl (32.0-36.5); MEAN CORPUSCULAR VOLUME 85.8 fl (80.0-96.0); MONO # 0.4 10^3/uL (0.0-0.8); MONO % 9.3 % (0.0-5.0); NEUTROPHILS # 1.8 10^3/uL (1.8-7.7); NEUTROPHILS % 38.8 % (36.0-66.0); PLATELET COUNT, AUTOMATED 226 10^3/uL (150-450); RED BLOOD COUNT 5.43 10^6/uL (4.30-6.10); WHITE BLOOD COUNT 4.7 10^3/uL (4.0-10.0)
[2019-04-07 14:02] LABS: ALBUMIN 4.1 GM/DL (3.2-5.2); ALT/SGPT 33 U/L (12-78); BILIRUBIN,TOTAL 0.5 MG/DL (0.2-1.0); BLOOD UREA NITROGEN 11 MG/DL (7-18); CALCIUM LEVEL 8.8 MG/DL (8.5-10.1); CARBON DIOXIDE LEVEL 31 MEQ/L (21-32); CHLORIDE LEVEL 104 MEQ/L (98-107); CHOLESTEROL LEVEL 116 MG/DL (<200); CHOLESTEROL RISK RATIO 2.035 (<5); FREE T4 1.24 NG/DL (0.76-1.46); GLOMERULAR FILTRATION RATE > 60.0 (>60); GLUCOSE, FASTING 86 MG/DL (70-100); HDL CHOLESTEROL 57 MG/DL (>40); LDL CHOLESTEROL 49 MG/DL (<100); NON-HDL-C 59 MG/DL; SODIUM LEVEL 141 MEQ/L (136-145); THYROID STIMULATING HORMONE 0.956 uIU/ML (0.358-3.740); TOTAL PROTEIN 7.1 GM/DL (6.4-8.2); TRIGLYCERIDES LEVEL 48 MG/DL (<150)
[2019-04-07 14:03] LABS: TOTAL 25(OH) VITAMIN D 31.7 NG/ML (30.0-100.0)
[2019-04-07 14:12] LABS: HEMOGLOBIN A1c 5.2 %
[2019-04-12 00:07] LABS: Lyme Disease IgG/IgM Antibodie <0.91 ISR (0.00-0.90); Lyme Disease IgM Ab Quantitati <0.80 index (0.00-0.79)
== END ==
LOC: M LAB REF 12:26
PROVIDERS: ATTEND Family Medicine
DX: Z13.228 Encounter for screening for other metabolic disorders (principal)

== ENCOUNTER → 2019-05-05 | Outpatient (CLI) | payer MEDICARE ==
--- NOTE | 2019-05-05 17:17 | REP ---
CT of the chest without IV contrast: Comparison is 01/11/2018. The large previous right upper lobe infiltrate has resolved. There are a few persisting tree in bud densities in the right upper lobe and right upper lobe is otherwise unremarkable. The previous tiny right pleural effusion has resolved. The previous soft tissue density extending from the left hilus into the lingular segment of the left upper lobe has resolved, compatible with resolved infiltrate. The previous 1.5 cm ground-glass nodule in the anterior segment of the resolved, compatible with resolved infiltrate. There are no new nodules, masses, effusions or infiltrates. The lung zuniga are clear. There is no mediastinal or axillary lymph node enlargement. In the absence of IV contrast the study is insensitive for evaluation of hilar nodes. The unenhanced thoracic aorta is. Cardiac size is normal. There is no pericardial effusion. The visualized unenhanced upper abdominal contents are unremarkable. There is no adrenal mass. Impression: Negative CT study of the chest. The previous lung parenchymal densities and pleural effusions have resolved. The Electronically Signed by Pasquale Ferrell MD 05/05/2019 05:08 P
== END ==
LOC: M RAD 16:11
PROVIDERS: ATTEND Family Medicine
DX: Z87.09 Personal history of other diseases of the respiratory system (principal)

== ENCOUNTER 2019-05-21 11:55 | Emergency (ER) | payer MEDICARE ==
[~2019-05-21] VITALS: Ht 172.7 cm; Wt 70.0 kg
[2019-05-21] MEDS ORDERED: IBUP-1022 PO (12:55)
[2019-05-21 13:43] VITALS: BP 122/74
--- NOTE | 2019-05-21 14:04 | REP ---
Clinical: Pain and swelling. Technique: AP, lateral, bilateral oblique views of the right ankle. Findings: Lateral swelling consist with inversion injury. No acute fracture dislocation. Ankle mortise intact. Impression: Lateral swelling. Electronically Signed by Juni Conrad MD 05/21/2019 12:56 P
== END 2019-05-21 13:25 | disposition home or self-care (01) ==
LOC: M ED 11:55
DX: S93.401A Sprain of unspecified ligament of right ankle, initial encounter (principal); X58.XXXA Exposure to other specified factors, initial encounter; Y92.9 Unspecified place or not applicable; Y93.9 Activity, unspecified; Y99.9 Unspecified external cause status; F19.10 Other psychoactive substance abuse, uncomplicated; Z88.0 Allergy status to penicillin

== ENCOUNTER 2019-08-23 13:27 | Emergency (ER) | payer MEDICARE ==
[~2019-08-23] VITALS: Ht 172.7 cm; Wt 68.2 kg
[~2019-08-23 13:27] MED LIST changes: -ALBU17IN2 INH; +IBUP-1022 PO; +PROV108A INH
--- NOTE | 2019-08-23 14:42 | REP ---
Chest x-ray: Two views. History: Dyspnea and cough. Comparison study: July 27, 2018. Findings: The lungs are well inflated and clear. Pleural angles are sharp. Cardiomediastinal silhouette and bony thorax are unremarkable. Pulmonary vasculature is not increased. Impression: Negative chest x-ray. Electronically Signed by Ed Mcgill MD 08/23/2019 02:34 P
[2019-08-23] MEDS ORDERED: ALBU8.5H IH (16:03)
[2019-08-23] MEDS ORDERED: CETI10CA2 PO (16:03)
[2019-08-23 16:17] VITALS: BP 149/73
== END 2019-08-23 16:25 | disposition home or self-care (01) ==
LOC: M ED 13:27
DX: J45.901 Unspecified asthma with (acute) exacerbation (principal); F43.10 Post-traumatic stress disorder, unspecified; F17.200 Nicotine dependence, unspecified, uncomplicated; Z88.1 Allergy status to other antibiotic agents; Z79.899 Other long term (current) drug therapy

== ENCOUNTER 2019-10-01 09:53 | Emergency (ER) | payer MEDICARE ==
[~2019-10-01] VITALS: Ht 172.7 cm; Wt 66.4 kg
[~2019-10-01 09:53] MED LIST changes: +ALBU8.5H IH; +CETI10CA2 PO
[2019-10-01] MEDS: ALBUTEROL SULFATE 2.5 MG/0.5 ML INH NEB SOLN INH PRN ×2 (10:36→11:03)
--- NOTE | 2019-10-01 11:04 | REP ---
Chest x-ray: Two views. History: Dyspnea and cough. Comparison study: August 23, 2019. Findings: The lungs are well inflated and clear. Pleural angles are sharp. Heart size is normal. Pulmonary vasculature is not increased. No significant bony abnormality is seen. Impression: No active disease. Electronically Signed by Ed Mcgill MD 10/01/2019 10:55 A
[2019-10-01] MEDS ORDERED: ALBU8.5H IH (11:36)
[2019-10-01 11:44] VITALS: BP 113/79
== END 2019-10-01 11:35 | disposition home or self-care (01) ==
LOC: M ED 09:53
DX: Z76.0 Encounter for issue of repeat prescription (principal); J45.901 Unspecified asthma with (acute) exacerbation; Z79.899 Other long term (current) drug therapy; Z88.0 Allergy status to penicillin; Z88.1 Allergy status to other antibiotic agents

== ENCOUNTER 2019-10-17 19:46 | Emergency (ER) | payer MEDICARE ==
[~2019-10-17] VITALS: Ht 172.7 cm; Wt 66.4 kg
[2019-10-17] MEDS ORDERED: predniSONE 20 MG TAB PO ONE (20:15)
[2019-10-17] MEDS: ALBUTEROL SULFATE 2.5 MG/0.5 ML INH NEB SOLN NEB PRN ×2 (20:21→21:58)
[2019-10-17 20:43] LABS: BASO % 0.7 % (0.0-1.0); EOS % 16.9 % (0.0-3.0); HEMATOCRIT 47.8 % (42.0-52.0); HEMOGLOBIN 16.2 g/dl (13.5-17.5); LYMPH # 2.5 10^3/uL (1.5-5.0); LYMPH % 40.4 % (24.0-44.0); MEAN CORPUSCULAR HEMOGLOBIN 29.7 pg (27.0-33.0); MEAN CORPUSCULAR HGB CONC 33.9 g/dl (32.0-36.5); MEAN CORPUSCULAR VOLUME 87.5 fl (80.0-96.0); MONO # 0.6 10^3/uL (0.0-0.8); MONO % 9.8 % (0.0-5.0); PLATELET COUNT, AUTOMATED 256 10^3/uL (150-450); RED BLOOD COUNT 5.46 10^6/uL (4.30-6.10); WHITE BLOOD COUNT 6.1 10^3/uL (4.0-10.0)
[2019-10-17 21:00] LABS: BLOOD UREA NITROGEN 8 MG/DL (7-18); CALCIUM LEVEL 8.8 MG/DL (8.5-10.1); CARBON DIOXIDE LEVEL 30 MEQ/L (21-32); CHLORIDE LEVEL 107 MEQ/L (98-107); CREATININE FOR GFR 1.14 MG/DL (0.70-1.30); GLOMERULAR FILTRATION RATE > 60.0 (>60); GLUCOSE, FASTING 79 MG/DL (70-100); POTASSIUM SERUM 4.4 MEQ/L (3.5-5.1); SODIUM LEVEL 142 MEQ/L (136-145)
[2019-10-17 22:50] VITALS: BP 125/62
--- NOTE | 2019-10-18 07:51 | REP ---
Clinical: Cough and dyspnea . Comparison: 10/01/2019 . Technique: PA and lateral. Findings: The mediastinum and cardiac silhouette are normal. The lung zuniga are clear and without acute consolidation, effusion, or pneumothorax. The skeletal structures are intact and normal. Impression: 1. No acute cardiopulmonary process. Electronically Signed by Juni Conrad MD 10/18/2019 07:42 A
== END 2019-10-17 22:51 | disposition home or self-care (01) ==
LOC: M ED 19:46
DX: J45.901 Unspecified asthma with (acute) exacerbation (principal); Z79.51 Long term (current) use of inhaled steroids; Z88.0 Allergy status to penicillin; Z88.1 Allergy status to other antibiotic agents; Z88.8 Allergy status to other drugs, medicaments and biological substances

== ENCOUNTER 2019-11-01 23:15 | Emergency (ER) | payer MEDICARE ==
[~2019-11-01] VITALS: Ht 172.7 cm; Wt 65.9 kg
[2019-11-01 23:30] VITALS: BP 140/81
[2019-11-01] MEDS ORDERED: METOCLOPRAMIDE INJ 10MG/2ML VIAL (J2765) IV ONE (23:45)
[2019-11-01] MEDS ORDERED: NS 1,000 ML IV ONE (23:45)
[2019-11-02 00:45] LABS: WHITE BLOOD COUNT 9.5 10^3/uL (4.0-10.0)
[2019-11-02 00:46] LABS: BASO % 0.3 % (0.0-1.0); EOS % 0.9 % (0.0-3.0); HEMATOCRIT 46.8 % (42.0-52.0); HEMOGLOBIN 16.3 g/dl (13.5-17.5); LYMPH % 9.6 % (24.0-44.0); MEAN CORPUSCULAR HEMOGLOBIN 29.9 pg (27.0-33.0); MEAN CORPUSCULAR HGB CONC 34.8 g/dl (32.0-36.5); MEAN CORPUSCULAR VOLUME 85.7 fl (80.0-96.0); MONO % 4.5 % (0.0-5.0); NEUTROPHILS % 84.4 % (36.0-66.0); PLATELET COUNT, AUTOMATED 213 10^3/uL (150-450); RED BLOOD COUNT 5.46 10^6/uL (4.30-6.10)
[2019-11-02 00:47] LABS: EOS # 0.1 10^3/uL (0.0-0.5); LYMPH # 0.9 10^3/uL (1.5-5.0); MONO # 0.4 10^3/uL (0.0-0.8)
[2019-11-02 01:14] LABS: BLOOD UREA NITROGEN 17 MG/DL (7-18); GLUCOSE, FASTING 95 MG/DL (70-100)
[2019-11-02 01:15] LABS: ALT/SGPT 28 U/L (12-78); BILIRUBIN,DIRECT 0.2 MG/DL (0.0-0.2); BILIRUBIN,TOTAL 0.9 MG/DL (0.2-1.0); CARBON DIOXIDE LEVEL 26 MEQ/L (21-32); CHLORIDE LEVEL 105 MEQ/L (98-107); CREATININE FOR GFR 0.99 MG/DL (0.70-1.30); GLOMERULAR FILTRATION RATE > 60.0 (>60); POTASSIUM SERUM 4.2 MEQ/L (3.5-5.1); SODIUM LEVEL 141 MEQ/L (136-145)
[2019-11-02 01:16] LABS: ETHYL ALCOHOL (ETHANOL) < 0.003 % (0.000-0.010); LIPASE 90 U/L (73-393)
[2019-11-02 01:31] LABS: AMPHETAMINES LEVEL URINE NEGATIVE (NEGATIVE); BARBITURATES URINE NEGATIVE (NEGATIVE); BENZODIAZEPINES URINE NEGATIVE (NEGATIVE); CANNABINOIDS URINE NEGATIVE (NEGATIVE); COCAINE METABOLITE URINE NEGATIVE (NEGATIVE); METHADONE URINE NEGATIVE (NEGATIVE); OPIATES URINE NEGATIVE (NEGATIVE); PHENCYCLIDINE URINE NEGATIVE (NEGATIVE)
[2019-11-02] MEDS ORDERED: REGL10TA6 PO (01:41)
== END 2019-11-02 02:00 | disposition home or self-care (01) ==
LOC: M ED 23:15
DX: K52.9 Noninfective gastroenteritis and colitis, unspecified (principal); F43.10 Post-traumatic stress disorder, unspecified; J45.909 Unspecified asthma, uncomplicated; Z79.51 Long term (current) use of inhaled steroids; Z79.899 Other long term (current) drug therapy; Z88.0 Allergy status to penicillin; Z88.1 Allergy status to other antibiotic agents
CPT/HCPCS: 36415; 80048; 80076; 80307; 83690; 85025; 96361; 96374; 99284; G0480; J2765

== ENCOUNTER → 2020-06-15 | Emergency (ER) | payer MEDICARE ==
[~2020-06-15] MED LIST changes: +BOOSTRIX/ADACEL VACCINE (DIPHTH/PERTUSS/ACELL/TETANUS) 0.5ML SYR As Ordered ONE; +BOOSTRIX/ADACEL VACCINE (DIPHTH/PERTUSS/ACELL/TETANUS) 0.5ML SYR ONE; -MONT10TA2 PO; +MONT10TA4 PO; +PROAAER10 INH
== END | disposition home or self-care (01) ==
LOC: M ED 21:30
DX: S60.412A Abrasion of right middle finger, initial encounter (principal); W22.8XXA Striking against or struck by other objects, initial encounter; Y92.89 Other specified places as the place of occurrence of the external cause; J45.909 Unspecified asthma, uncomplicated; Z88.0 Allergy status to penicillin

== ENCOUNTER 2020-09-19 06:10 | Emergency (ER) | payer MEDICARE ==
[~2020-09-19] VITALS: Ht 172.7 cm; Wt 72.7 kg
[~2020-09-19 06:10] MED LIST changes: -BOOSTRIX/ADACEL VACCINE (DIPHTH/PERTUSS/ACELL/TETANUS) 0.5ML SYR As Ordered ONE; -BOOSTRIX/ADACEL VACCINE (DIPHTH/PERTUSS/ACELL/TETANUS) 0.5ML SYR ONE; -PROAAER10 INH
[2020-09-19] MEDS: ALBUTEROL 90 MCG/ACT 8GM HFA INHALER INH SCH ×3 (06:56→07:38)
[2020-09-19] MEDS ORDERED: predniSONE 20 MG TAB PO ONE (07:00)
[2020-09-19 07:28] VITALS: O2SAT 98
[2020-09-19 07:47] LABS: BASO % 0.3 % (0.0-1.0); EOS # 0.6 10^3/uL (0.0-0.5); HEMATOCRIT 48.8 % (42.0-52.0); HEMOGLOBIN 15.9 g/dl (13.5-17.5); LYMPH # 3.4 10^3/uL (1.5-5.0); LYMPH % 55.1 % (24.0-44.0); MEAN CORPUSCULAR HEMOGLOBIN 28.6 pg (27.0-33.0); MEAN CORPUSCULAR HGB CONC 32.6 g/dl (32.0-36.5); MEAN CORPUSCULAR VOLUME 87.8 fl (80.0-96.0); MONO # 0.5 10^3/uL (0.0-0.8); MONO % 7.5 % (0.0-5.0); NEUTROPHILS # 1.7 10^3/uL (1.5-8.5); NEUTROPHILS % 26.9 % (36.0-66.0); PLATELET COUNT, AUTOMATED 204 10^3/uL (150-450); RED BLOOD COUNT 5.56 10^6/uL (4.30-6.10); WHITE BLOOD COUNT 6.1 10^3/uL (4.0-10.0)
[2020-09-19 07:54] LABS: BLOOD UREA NITROGEN 11 MG/DL (7-18); CALCIUM LEVEL 8.8 MG/DL (8.5-10.1); CARBON DIOXIDE LEVEL 29 MEQ/L (21-32); CHLORIDE LEVEL 107 MEQ/L (98-107); CREATININE FOR GFR 0.97 MG/DL (0.70-1.30); GLOMERULAR FILTRATION RATE > 60.0 (>60); GLUCOSE, FASTING 104 MG/DL (70-100); POTASSIUM SERUM 3.7 MEQ/L (3.5-5.1); SODIUM LEVEL 143 MEQ/L (136-145)
--- NOTE | 2020-09-19 08:16 | REP ---
INDICATION: DYSPNEA/COUGH. COMPARISON: October 17, 2019. TECHNIQUE: Sitting AP portable exam. FINDINGS: Monitoring electrodes are seen. The lungs are well inflated and clear. Cardiomediastinal silhouette is unremarkable. Pulmonary vasculature is not increased. No bony abnormality is seen. Pleural angles are sharp. IMPRESSION: Negative portable chest x-ray. <Electronically signed by Branden Mcgill > 09/19/20 [id number]
[2020-09-19] MEDS ORDERED: PROAAER10 INH (08:36)
[2020-09-19] MEDS ORDERED: PRED20TA PO (08:36)
[2020-09-19 08:45] VITALS: BP 147/81
--- NOTE | 2020-09-24 08:02 | ED PDOC ---
Post-Departure Follow-Up Called patient to update on negative COVID-19 test. Pt expressed good understand ing. All questions addressed. CIERA OTOOLE TAYLOR E. PA-C Sep 24, 2020 08:02
== END 2020-09-19 09:01 | disposition home or self-care (01) ==
LOC: M ED 06:10
DX: J45.901 Unspecified asthma with (acute) exacerbation (principal); B34.9 Viral infection, unspecified; F33.9 Major depressive disorder, recurrent, unspecified; F41.9 Anxiety disorder, unspecified; F43.10 Post-traumatic stress disorder, unspecified; F90.9 Attention-deficit hyperactivity disorder, unspecified type; Z79.899 Other long term (current) drug therapy; Z77.22 Contact with and (suspected) exposure to environmental tobacco smoke (acute) (chronic)
CPT/HCPCS: 36415; 71045; 80048; 85025; 93041; 94640; 94760; 99285; U0003

== ENCOUNTER 2021-01-04 18:33 | Emergency (ER) | payer MEDICARE ==
[~2021-01-04] VITALS: Ht 172.7 cm; Wt 79.9 kg
[~2021-01-04 18:33] MED LIST changes: +MONT10TA10 PO; -MONT10TA4 PO; +PROAAER10 INH
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
[2021-01-04] MEDS ORDERED: ALBUTEROL 90 MCG/ACT 8GM HFA INHALER INH ONE ×2 (19:00→19:45)
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
[2021-01-04] MEDS ORDERED: PRED20TA PO ×2 (20:01→20:06)
[2021-01-04] MEDS ORDERED: ALBU8.5H INH (20:13)
[2021-01-04 20:20] VITALS: BP 112/72
== END 2021-01-04 20:21 | disposition home or self-care (01) ==
LOC: M ED 18:33
DX: J45.21 Mild intermittent asthma with (acute) exacerbation (principal); R56.9 Unspecified convulsions; Z88.0 Allergy status to penicillin; Z88.1 Allergy status to other antibiotic agents; F17.210 Nicotine dependence, cigarettes, uncomplicated

== ENCOUNTER 2021-01-11 19:17 | Emergency (ER) | payer MEDICARE ==
[~2021-01-11] VITALS: Ht 172.7 cm; Wt 72.7 kg
[~2021-01-11 19:17] MED LIST changes: +ALBU8.5H INH
[2021-01-11] MEDS ORDERED: COMBIVENT RESPIMAT 100-20MCG INHALER 4GM INH STA (19:57)
[2021-01-11] MEDS ORDERED: predniSONE 20 MG TAB PO ONE (20:00)
--- NOTE | 2021-01-11 21:04 | REPVR ---
PROCEDURE INFORMATION: Exam: XR Chest Exam date and time: 01/11/2021 8:13 PM Age: 30 years old Clinical indication: SOB; Cough TECHNIQUE: Imaging protocol: XR of the chest Views: 2 views. COMPARISON: [facility] PORTABLE CHEST X-RAY 09/19/2020 7:49 AM FINDINGS: Lungs: Unremarkable. No consolidation. No pulmonary edema. Pleural spaces: Unremarkable. No pleural effusion. No pneumothorax. Heart/Mediastinum: Unremarkable. No cardiomegaly. Bones/joints: There is a slight levoscoliosis of the thoracic spine. IMPRESSION: No acute findings. Electronically signed by: Ned Rush On 01/11/2021 21:04:32 PM
[2021-01-11] MEDS ORDERED: ALBUTEROL 90 MCG/ACT 8GM HFA INHALER INH ONE (21:20)
[2021-01-11] MEDS ORDERED: PROAAER10 INH (21:21)
[2021-01-11] MEDS ORDERED: PRED10TA2 PO (21:21)
[2021-01-11 21:30] VITALS: BP 122/67
== END 2021-01-11 21:37 | disposition home or self-care (01) ==
LOC: M ED 19:17
DX: J45.901 Unspecified asthma with (acute) exacerbation (principal); F43.10 Post-traumatic stress disorder, unspecified; F90.9 Attention-deficit hyperactivity disorder, unspecified type; Z79.899 Other long term (current) drug therapy; Z88.0 Allergy status to penicillin; Z88.1 Allergy status to other antibiotic agents; Z88.8 Allergy status to other drugs, medicaments and biological substances

== ENCOUNTER → 2021-01-31 | Outpatient (CLI) | payer MEDICARE ==
[~2021-01-31] MED LIST changes: +PRED10TA2 PO
--- NOTE | 2021-01-31 18:55 | REP ---
INDICATION: SPRAIN OF RIGHT ANKLE. COMPARISON: Comparison right ankle radiographs are from May 21, 2019.. TECHNIQUE: Four views. FINDINGS: Four views of the right ankle demonstrate minimal anterolateral soft tissue swelling. Ankle mortise is intact. No fracture or subluxation is seen. IMPRESSION: Mild swelling. No fracture or subluxation noted. <Electronically signed by Branden Mcgill > 01/31/21 [id number]
== END ==
LOC: M RAD 12:38
PROVIDERS: ATTEND Physician Assistant
DX: S93.401D Sprain of unspecified ligament of right ankle, subsequent encounter (principal); X58.XXXD Exposure to other specified factors, subsequent encounter; Y92.9 Unspecified place or not applicable; Y93.9 Activity, unspecified; Y99.9 Unspecified external cause status

== ENCOUNTER → 2021-02-12 | Outpatient (RCR) | payer MEDICARE | END | disposition home or self-care (01) | LOC: M PT 13:32 | PROVIDERS: ATTEND Physician Assistant | DX: S93.401D Sprain of unspecified ligament of right ankle, subsequent encounter (principal) ==

== ENCOUNTER 2021-03-07 14:30 | Outpatient (RCR) | payer MEDICARE | END 2021-03-14 | LOC: M PT 14:30 | PROVIDERS: ATTEND Physician Assistant | DX: S93.401D Sprain of unspecified ligament of right ankle, subsequent encounter (principal) ==

== ENCOUNTER 2021-03-25 16:55 | Emergency (ER) | payer MEDICARE ==
[~2021-03-25] VITALS: Ht 172.7 cm; Wt 74.1 kg
[2021-03-25] MEDS ORDERED: predniSONE 20 MG TAB PO ONE (19:00)
[2021-03-25] MEDS ORDERED: IPRATROPIUM HFA INHALER 12.9 GRAMS (ATROVENT HFA) INH ONE (19:00)
[2021-03-25] MEDS ORDERED: ALBUTEROL 90 MCG/ACT 8GM HFA INHALER INH ONE (19:00)
[2021-03-25] MEDS ORDERED: PRED20TA PO (20:17)
[2021-03-25] MEDS ORDERED: VENTAER INH (20:17)
[2021-03-25 20:21] VITALS: BP 137/89
== END 2021-03-25 20:51 | disposition home or self-care (01) ==
LOC: M ED 16:55
DX: J45.901 Unspecified asthma with (acute) exacerbation (principal); Z76.0 Encounter for issue of repeat prescription; Z88.0 Allergy status to penicillin; Z88.8 Allergy status to other drugs, medicaments and biological substances; Z88.1 Allergy status to other antibiotic agents
CPT/HCPCS: 99283; J7512

== ENCOUNTER 2021-10-01 21:02 | Emergency (ER) | payer MEDICARE ==
[~2021-10-01] VITALS: Ht 172.7 cm; Wt 72.9 kg
[2021-10-01] MEDS ORDERED: ATRO0.063 INH (21:07)
--- OUTSIDE RECORDS SUMMARY | 2021-10-01 21:07 | CCD ---
Author Organization Unknown Address [address] [place] [address] Phone [phone] Care Team Providers Care Human Machine Interface Engineer Name Role Phone Nena Priest Ann Unavailable Unavailable Allergies Code Code System Name Reaction Severity Status Onset 723 RxNorm Amoxicillin Active 05/02/20 19 Penicillin Active 9 Medications Name Status Start Date Stop Date albuterol sulfate HFA 90 mcg/actuation a erosol inhaler INHALE TWO PUFFS BY MOUTH EVERY 4 TO 6 HOURS NEEDED FOR WHEEZING Active Not available cetirizine 10 mg capsule Take by oral route as needed. Completed loratadine 10 mg tablet Take 1 tablet every day by oral route. Completed 07/08/2021 prednisone 10 mg tablet Completed 01/31/20 21 prednisone 20 mg tablet Completed 07/08/20 21 Problems Name Status Onset Date Source Anxiety Active 03/06/2019 History Acute Bronchitis Unknown 03/06/2019 History Asthma Active 03/06/2019 History Endocrine/metabolic Screening Unknown 03/06/2019 Hi story Impacted Cerumen of Bilateral Ears Unknown 03/06/2019 History Clinical Finding Unknown 03/06/2019 History Posttraumatic Stress Disorder Active 01/30/2021 Depressive Disorder Active 01/30/2021 Major Depressive Disorder Unknown 03/28/2021 Chronic Recurrent Major Depressive Disorder Active 04/2021 Procedures Date Name Performed by 01/30/2021 XR, Ankle, 3 or More View [facility] Radiology Dept [address] [place] [address] [id number] (Work [address]) Notes: Oral surgery Results Lab Results None recorded. Past Encounters 07/08/2021 Adult Health Examination; Chronic Recurrent Major Depressive Disorder; Posttraumatic Stress Disorder; Asthma Leandra Pena PA-C: [address] [place] [address], Ph. 05/02/2021 Major Depressive Disorder Tsering Gongora LMSW: [address] [place] [address], Ph. 04/11/2021 Major Depressive Disorder Tsering Gongora [facility]: [address] [place] [address], Ph. 03/28/2021 Major Depressive Disorder Tsering Gongora [facility]: [address] [place] [address], Ph. 03/17/2021 Chronic Recurrent Major Depressive Disorder Tsering Gongora [facility]: [address] [place] [address], Ph. 01/30/2021 Moderate Recurrent Major Depression; Generalized Anxiety Disorder; Allergic Rhinitis; Asthma; Sprain of Right Ankle Leandra Pena PA-C: [address] [place] [address], Ph. Social History Tobacco Smoking Status Former Smoker (1/2 pack per a day) No helen: Previous Vaccine List Notes: Pt declines flu vaccine and COVID vaccine despite counseling. Plan of Care Reminders Provider Appointments None recorded. Lab None recorded. Referral None recorded. Procedures None recorded. Surgeries None recorded. Imaging None recorded. Vitals 07/08/2021 08:20AM ANNUAL EXAM Height Weight BMI Blood Pressure 70 in 168 lbs 8 oz 24.2 kg/m2 104/70 mm[Hg] 01/30/2021 01:00PM ANNUAL EXAM Height Weight BMI Blood Pressure 70 in 166 lbs 6 oz 23.9 kg/m2 115/75 mm[Hg] 05/02/2019 Height Weight BMI Blood Pressure 68 in 150 lbs 22.89 kg/m2 122/86 mm[Hg] 04/07/2019 Height Weight BMI Blood Pressure 68 in 162 lbs 24.72 kg/m2 115/71 mm[Hg] 03/31/2019 Height Weight BMI Blood Pressure 68 in 147 lbs 8 oz 22.51 kg/m2 123/74 mm[Hg] 03/06/2019 Height Weight BMI Blood Pressure 68 in 147 lbs 8 oz 22.51 kg/m2 111/72 mm[Hg]
--- OUTSIDE RECORDS SUMMARY | 2021-10-01 21:07 | CCD ---
Author Organization Unknown Address [address] [place] [address] Phone [phone] Care Team Providers Care Phlebotomy Technologist Name Role Phone Nena Priest Unavailable Unavailable Allergies Code Code System Name [...] Cerumen of Bilateral Ears Unknown 03/06/2019 History Finding of Abdominopelvic Segment of Trunk Unknown 03/06 History Posttraumatic Stress Disorder Active 01/30/2021 Depressive Disorder Active 01/30/2021 Major Depressive Disorder Unknown 03/28/2021 Chronic Recurrent Major Depressive Disorder Active 04/2021 Procedures Date Name Performed by 01/30/2021 XR, Ankle, 3 or More View [facility] Radiology Dept [address] [place] [address] [id number] (Work [address]) Notes: Oral surgery Results Lab Results None recorded. Past Encounters 09/29/2021 Chronic Recurrent Major Depressive Disorder; Major Depressive Disorder Tsering Gongora LMSW: [address] [place] [address], Ph. 07/30/2021 Chronic Recurrent Major Depressive Disorder; Major Depressive Disorder Tsering Gongora LMSW: [address] [place] [address], Ph. 07/08/2021 Adult Health Examination; Chronic Recurrent Major Depressive Disorder; Posttraumatic Stress Disorder; Asthma Leandra Pena PA-C: [address] [place] [phone], Ph. 05/02/2021 [facility] [address] [place] [address], Ph. 04/11/[address] [facility] [address] [place] [address], Ph. 03/28/2021 Major Dep[address] Disorder [facility] [address] [place] [address], Ph. 03/17/2021 Chronic Recurrent Major Depressive [facility] [address] [place] [phone], Ph. 01/30/2021 Moderate Recurrent Major Depression; Generalized Anxiety Disorder; Allergic Rhinitis; Asthma; Sprain of Right Ankle Leandra Pena PA-C: [address] [place] [phone], Ph. Social History Tobacco Smoking Status Former Smoker (1/2 pack per day) Note s: Previous Vaccine List Notes: Pt declines flu [...]
--- OUTSIDE RECORDS SUMMARY | 2021-10-01 21:07 | CCD ---
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 kg/m2 23.9 k g/m2 [place] ([facility]) Systolic blood pressure 115 mm[Hg] 115 mm[Hg] A [place] ([facility]) Body weight 2662 [oz_av] 2662 [oz_av] [place] ([facility]) Diastolic blood pressure 75 mm[Hg] 75 mm[Hg] [place] ([facility]) Body height 70 [in_i] 70 [in_i] [place] ([facility]) Body mass index (BMI) [Ratio] 23.9 kg/m2 23.9 k g/m2 [place] ([facility]) Systolic blood pressure 115 mm[Hg] 115 mm[Hg] [facility] Body weight 2662 [oz_av] 2662 [oz_av] [place] ([facility]) Diastolic blood pressure 75 mm[Hg] 75 mm[Hg] [place] ([facility]) Body height 70 [in_i] 70 [in_i] [place] ([facility]) Body mass index (BMI) [Ratio] 23.9 kg/m2 23.9 k g/m2 [place] ([facility]) Systolic blood pressure 115 mm[Hg] 115 mm[Hg] [facility] Diastolic blood pressure 75 mm[Hg] 75 mm[Hg] [place] ([facility]) Body weight 2662 [oz_av] 2662 [oz_av] [place] ([facility]) Body weight 2662 [oz_av] 2662 [oz_av] [place] ([facility]) Diastolic blood pressure 75 mm[Hg] 75 mm[Hg] [place] ([facility]) Body height 70 [in_i] 70 [in_i] [place] ([facility]) Body mass index (BMI) [Ratio] 23.9 kg/m2 23.9 k g/m2 [place] ([facility]) Systolic blood pressure 115 mm[Hg] 115 mm[Hg] [facility] Body height 70 [in_i] 70 [in_i] [place] ([facility]) Body mass index (BMI) [Ratio] 23.9 kg/m2 23.9 k g/m2 [place] ([facility]) Systolic blood pressure 115 mm[Hg] 115 mm[Hg] [facility] Body weight 2662 [oz_av] 2662 [oz_av] [place] ([facility]) Diastolic blood pressure 75 mm[Hg] 75 mm[Hg] [place] ([facility]) Body height 70 [in_i] 70 [in_i] [place] ([facility]) Body mass index (BMI) [Ratio] 23.9 kg/m2 23.9 k g/m2 [place] ([facility]) Systolic blood pressure 115 mm[Hg] 115 mm[Hg] [facility] Body weight 2662 [oz_av] 2662 [oz_av] [place] ([facility]) Body mass index (BMI) [Ratio] 23.9 kg/m2 23.9 k g/m2 [place] ([facility]) Systolic blood pressure 115 mm[Hg] 115 mm[Hg] A [place] ([facility]) Body weight 2662 [oz_av] 2662 [oz_av] [place] ([facility]) Diastolic blood pressure 75 mm[Hg] 75 mm[Hg] [place] ([facility]) Body height 70 [in_i] 70 [in_i] [place] ([facility]) Diastolic blood pressure 75 mm[Hg] 75 mm[Hg] [place] ([facility]) Body height 70 [in_i] 70 [in_i] [place] ([facility]) Body mass index (BMI) [Ratio] 23.9 kg/m2 23.9 k g/m2 [place] ([facility]) Systolic blood pressure 115 mm[Hg] 115 mm[Hg] A [place] ([facility]) Body weight 2662 [oz_av] 2662 [oz_av] [place] ([facility]) Patient Treatment Plan of Care Planned Activity Planned Date Details Description Data Source (s) Prednisone 20 MG Oral Tablet [place] ([facility]) Prednisone 10 MG Oral Tablet [place] ([facility]) Loratadine 10 MG Oral Tablet [place] ([facility]) cetirizine hydrochloride 10 MG Oral Capsule [place] ([facility]) Prednisone 20 MG Oral Tablet [place] ([facility]) Prednisone 10 MG Oral Tablet [place] ([facility]) Loratadine 10 MG Oral Tablet [place] ([facility]) cetirizine hydrochloride 10 MG Oral Capsule [place] ([facility]) Prednisone 20 MG Oral Tablet [place] ([facility]) Prednisone 10 MG Oral Tablet [place] ([facility]) Loratadine 10 MG Oral Tablet [place] ([facility]) cetirizine hydrochloride 10 MG Oral Capsule [place] ([facility]) Prednisone 10 MG Oral Tablet [place] ([facility]) cetirizine hydrochloride 10 MG Oral Capsule [place] ([facility]) Prednisone 10 MG Oral Tablet [place] ([facility]) cetirizine hydrochloride 10 MG Oral Capsule [place] ([facility]) Prednisone 10 MG Oral Tablet [place] ([facility]) cetirizine hydrochloride 10 MG Oral Capsule [place] ([facility]) Prednisone 10 MG Oral Tablet [place] ([facility]) cetirizine hydrochloride 10 MG Oral Capsule [place] ([facility]) Prednisone 10 MG Oral Tablet [place] ([facility]) cetirizine hydrochloride 10 MG Oral Capsule [place] ([facility])
--- OUTSIDE RECORDS SUMMARY | 2021-10-01 21:07 | CCD ---
Author Organization Unknown Address [address] [place] [address] Phone [phone] Care Team Providers Care Project Coach Name Role Phone Nena Priest Ann Unavailable Unavailable Allergies Code Code System Name Reaction Severity Status Onset 723 RxNorm Amoxicillin Active 05/02/2019 Penicillin Active 05/02/2019 Medications Name Status Start Date Stop Date albuterol sulfate HFA 90 mcg/actuation a erosol inhaler INHALE TWO PUFFS BY MOUTH EVERY 4 TO 6 HOURS NEEDED FOR WHEEZING Active Not available cetirizine 10 mg capsule Take by oral route as needed. Completed loratadine 10 mg tablet Take 1 tablet every day by oral route. Completed 07/08/2021 prednisone 10 mg tablet Completed 01/31/20 prednisone 20 mg tablet Completed 07/08/20 21 [...] 01/30/2021 XR, Ankle, 3 or More View [facility] Radiology Dept [address] [place] [address] [phone] (Work [address]) Notes: Oral surgery Results Lab Results None recorded. Past Encounters 07/30/2021 Chronic Recurrent Major Depressive Disorder; Major Depressive Disorder Tsering Gongora LMSW: [address] [place] [phone], Ph. 07/08/2021 Adult Health Examination; Chronic Recurrent Major Depressive Disorder; Posttraumatic Stress Disorder; Asthma Leandra Pena PA-C: [address] [place] [address], Ph. 05/02/2021 Major Depressive Disorder Tsering Gongora [facility]: [address] [place] [address], Ph. 04/11/2021 Major Depressive Disorder Tsering Gongora [facility]: [address] [place] [address], Ph. 03/28/2021 Major Depressive Disorder Tsering Gongora [facility]: [address] [place] [address], Ph. 03/17/2021 Chronic Recurrent Major Depressive Disorder Tsering Gongora [facility]: [address] [place] [address], Ph. 01/30/2021 Moderate Recurrent Major Depression; Generalized Anxiety Disorder; Allergic Rhinitis; Asthma; Sprain of Right Ankle Leandra Pena PA-C: [address] [place] [phone], Ph. Social History Tobacco Smoking Status Former [...]
[2021-10-01] MEDS ORDERED: ALBUTEROL 90 MCG/ACT 8GM HFA INHALER INH ONE (21:50)
--- OUTSIDE RECORDS SUMMARY | 2021-10-01 23:31 | CCD ---
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 2662 [oz_av] 2662 [oz_av] [facility] ([facility]) Diastolic blood pressure 75 mm[Hg] 75 mm[Hg] [place] ([facility]) Body height 70 [in_i] 70 [in_i] [place] ([facility]) Body mass index (BMI) [Ratio] 23.9 kg/m2 23.9 k g/m2 [place] ([facility]) Systolic blood pressure 115 mm[Hg] 115 mm[Hg] A [place] ([facility]) Body weight 2662 [oz_av] 2662 [oz_av] [facility] ([facility]) Patient Treatment Plan of Care Planned Activity Planned Date Details Description Data Source (s) Prednisone 20 MG Oral Tablet [place] ([facility]) Prednisone 10 MG Oral Tablet [facility] ([facility]) Loratadine 10 MG Oral Tablet [place] ([facility]) cetirizine hydrochloride 10 MG Oral Capsule [place] ([facility]) Prednisone 20 MG Oral Tablet [place] ([facility]) Prednisone 10 MG Oral Tablet [place] ([facility]) Loratadine 10 MG Oral Tablet [place] ([facility]) cetirizine hydrochloride 10 MG Oral Capsule [place] ([facility]) Prednisone 20 MG Oral Tablet [place] ([facility]) Prednisone 10 MG Oral Tablet [place] ([facility]) Loratadine 10 MG Oral Tablet [place] ([facility]) cetirizine hydrochloride 10 MG Oral Capsule [place] ([facility]) Prednisone 10 MG Oral Tablet [place] ([facility]) cetirizine hydrochloride 10 MG Oral Capsule [place] ([facility]) Prednisone 10 MG Oral Tablet [place] ([facility]) cetirizine hydrochloride 10 MG Oral Capsule [place] ([facility]) Prednisone 10 MG Oral Tablet [place] ([facility]) cetirizine hydrochloride 10 MG Oral Capsule [place] ([facility]) Prednisone 10 MG Oral Tablet [place] ([facility]) cetirizine hydrochloride 10 MG Oral Capsule [place] ([facility]) Prednisone 10 MG Oral Tablet [place] ([facility]) cetirizine hydrochloride 10 MG Oral Capsule [facility] ([facility])
[2021-10-01] MEDS ORDERED: PRED20TA PO (23:57)
[2021-10-01] MEDS ORDERED: PROAAER10 INH (23:57)
[2021-10-01 23:58] VITALS: BP 133/80
[2021-10-02] MEDS ORDERED: ALBUTEROL 90 MCG/ACT 8GM HFA INHALER INH ONE (00:05)
[2021-10-02] MEDS ORDERED: predniSONE 20 MG TAB PO ONE (00:10)
== END 2021-10-02 00:35 | disposition home or self-care (01) ==
LOC: M ED 21:02
DX: J45.901 Unspecified asthma with (acute) exacerbation (principal); Z79.51 Long term (current) use of inhaled steroids; Z88.0 Allergy status to penicillin; Z88.1 Allergy status to other antibiotic agents; Z88.8 Allergy status to other drugs, medicaments and biological substances
CPT/HCPCS: 94640; 99283; J7512

== ENCOUNTER 2022-04-15 04:35 | Emergency (ER) | payer MEDICARE ==
[~2022-04-15] VITALS: Ht 172.7 cm; Wt 78.6 kg
[~2022-04-15 04:35] MED LIST changes: +ATRO0.063 INH; -MONT10TA10 PO; +MONT10TA97 PO
[2022-04-15] MEDS ORDERED: methylPREDNISolone 125MG 2ML VIAL IV ONE (05:00)
[2022-04-15] MEDS: IPRATROPIUM 0.5MG/ALBUTEROL 2.5MG INH SOL UD 3ML (DUONEB) NEB PRN ×3 (05:15→05:28)
[2022-04-15 05:38] LABS: VENOUS BASE EXCESS -2.4 (-2.0-2.0); VENOUS HCO3 22.1 MEQ/L (23.0-27.0); VENOUS O2 SATURATION 97.6 % (60.0-80.0); VENOUS PARTIAL PRESSURE CO2 37.2 mmHg (38.0-50.0); VENOUS PARTIAL PRESSURE O2 104.7 mmHg (30.0-50.0); VENOUS PH 7.391 UNITS (7.330-7.430); VENOUS STANDARD HCO3 22.5 MEQ/L; VENOUS TOTAL CO2 23.2 MEQ/L (24.0-28.0)
[2022-04-15 06:00] VITALS: BP 159/76
[2022-04-15 06:03] LABS: BASO % 0.3 % (0.0-1.0); EOS # 0.4 10^3/uL (0.0-0.5); EOS % 6.4 % (0.0-3.0); HEMATOCRIT 45.4 % (42.0-52.0); HEMOGLOBIN 15.4 g/dl (13.5-17.5); LYMPH # 3.5 10^3/uL (1.5-5.0); LYMPH % 52.6 % (24.0-44.0); MEAN CORPUSCULAR HGB CONC 33.9 g/dl (32.0-36.5); MEAN CORPUSCULAR VOLUME 88.3 fl (80.0-96.0); MONO # 0.7 10^3/uL (0.0-0.8); MONO % 10.5 % (2.0-8.0); NEUTROPHILS % 29.9 % (36.0-66.0); PLATELET COUNT, AUTOMATED 238 10^3/uL (150-450); RED BLOOD COUNT 5.14 10^6/uL (4.30-6.10); WHITE BLOOD COUNT 6.6 10^3/uL (4.0-10.0)
[2022-04-15 06:15] LABS: CK-MB VALUE MASS 1.4 NG/ML (<3.6); MB/CK RELATIVE INDEX 0.84 (< OR =4)
[2022-04-15 06:22] LABS: ALBUMIN 3.7 GM/DL (3.2-5.2); ALT/SGPT 27 U/L (12-78); BILIRUBIN,DIRECT 0.1 MG/DL (0.0-0.2); BILIRUBIN,TOTAL 0.3 MG/DL (0.2-1.0); BLOOD UREA NITROGEN 19 MG/DL (7-18); CALCIUM LEVEL 9.4 MG/DL (8.5-10.1); CARBON DIOXIDE LEVEL 29 MEQ/L (21-32); CHLORIDE LEVEL 110 MEQ/L (98-107); CREATININE FOR GFR 0.98 MG/DL (0.70-1.30); GLOMERULAR FILTRATION RATE > 60.0 (>60); GLUCOSE, FASTING 88 MG/DL (70-100); NT-PRO BNP 13 PG/ML (<125); POTASSIUM SERUM 4.4 MEQ/L (3.5-5.1); SODIUM LEVEL 144 MEQ/L (136-145); THYROID STIMULATING HORMONE 0.634 uIU/ML (0.358-3.740); TOTAL PROTEIN 6.6 GM/DL (6.4-8.2)
[2022-04-15] MEDS ORDERED: VENTAER INH (07:00)
[2022-04-15] MEDS ORDERED: PRED20TA PO (07:01)
[2022-04-15 07:08] LABS: CK-MB VALUE MASS < 1.0 NG/ML (<3.6); CPK CREATINE PHOSPHOKINASE 144 U/L (39-308); MB/CK RELATIVE INDEX 0.69 (< OR =4)
== END 2022-04-15 07:28 | disposition home or self-care (01) ==
LOC: M ED 04:35
DX: J45.909 Unspecified asthma, uncomplicated (principal); Z88.0 Allergy status to penicillin; Z88.1 Allergy status to other antibiotic agents; Z88.8 Allergy status to other drugs, medicaments and biological substances; F17.210 Nicotine dependence, cigarettes, uncomplicated
CPT/HCPCS: 71046; 80048; 80076; 82550; 82553; 82803; 83880; 84443; 84484; 85025; 85379; 87486; 87581; 87633; 87798; 93005; 93041; 94640; 94760; 96374; 99285; J2930

== ENCOUNTER 2022-05-10 23:21 | Emergency (ER) | payer MEDICARE ==
[~2022-05-10] VITALS: Ht 172.7 cm; Wt 75.3 kg
[2022-05-11] MEDS ORDERED: ALBUTEROL SULFATE 2.5 MG/0.5 ML INH NEB SOLN NEB ONE ×2 (01:05)
[2022-05-11 01:41] LABS: VENOUS PH 7.453 UNITS (7.330-7.430)
[2022-05-11 01:42] LABS: BASO % 0.3 % (0.0-1.0); EOS # 0.1 10^3/uL (0.0-0.5); EOS % 1.1 % (0.0-3.0); HEMATOCRIT 46.3 % (42.0-52.0); HEMOGLOBIN 15.8 g/dl (13.5-17.5); LYMPH # 1.7 10^3/uL (1.5-5.0); MEAN CORPUSCULAR HEMOGLOBIN 29.6 pg (27.0-33.0); MEAN CORPUSCULAR HGB CONC 34.1 g/dl (32.0-36.5); MEAN CORPUSCULAR VOLUME 86.9 fl (80.0-96.0); MONO # 1.1 10^3/uL (0.0-0.8); MONO % 8.9 % (2.0-8.0); NEUTROPHILS % 75.4 % (36.0-66.0); PLATELET COUNT, AUTOMATED 282 10^3/uL (150-450); RED BLOOD COUNT 5.33 10^6/uL (4.30-6.10); VENOUS BASE EXCESS 0.5 (-2.0-2.0); VENOUS HCO3 23.8 MEQ/L (23.0-27.0); VENOUS O2 SATURATION 83.9 % (60.0-80.0); VENOUS PARTIAL PRESSURE CO2 34.8 mmHg (38.0-50.0); VENOUS PARTIAL PRESSURE O2 43.2 mmHg (30.0-50.0); VENOUS STANDARD HCO3 24.6 MEQ/L; VENOUS TOTAL CO2 24.9 MEQ/L (24.0-28.0)
[2022-05-11 01:46] VITALS: BP 132/72
[2022-05-11 01:56] LABS: INR 1.01; PROTHROMBIN TIME 13.7 SECONDS (12.7-14.5)
[2022-05-11 02:10] LABS: CK-MB VALUE MASS 1.3 NG/ML (<3.6); MB/CK RELATIVE INDEX 0.81 (< OR =4)
[2022-05-11] MEDS ORDERED: ALBUTEROL 90 MCG/ACT 8GM HFA INHALER INH ONE (02:25)
[2022-05-11] MEDS ORDERED: VENTAER INH (02:26)
[2022-05-11] MEDS ORDERED: ATRO0.063 INH (02:27)
== END 2022-05-11 03:55 | disposition home or self-care (01) ==
LOC: M ED 23:21
DX: J45.901 Unspecified asthma with (acute) exacerbation (principal); F17.200 Nicotine dependence, unspecified, uncomplicated; Z88.0 Allergy status to penicillin; Z88.1 Allergy status to other antibiotic agents; Z88.8 Allergy status to other drugs, medicaments and biological substances

== ENCOUNTER 2022-08-03 19:34 | Emergency (ER) | payer MEDICARE ==
[~2022-08-03] VITALS: Ht 172.7 cm; Wt 76.4 kg
[~2022-08-03 19:34] MED LIST changes: +ALBU6.7H6 INH; -PROV108A INH
[2022-08-03] MEDS ORDERED: IPRATROPIUM 0.5MG/ALBUTEROL 2.5MG INH SOL UD 3ML (DUONEB) NEB ONE ×2 (20:45)
[2022-08-03] MEDS ORDERED: methylPREDNISolone 125MG 2ML VIAL IV ONE (21:00)
[2022-08-03 21:05] LABS: BASO % 0.6 % (0.0-1.0); EOS # 0.6 10^3/uL (0.0-0.5); EOS % 7.9 % (0.0-3.0); HEMATOCRIT 46.6 % (42.0-52.0); HEMOGLOBIN 15.7 g/dl (13.5-17.5); LYMPH # 3.1 10^3/uL (1.5-5.0); LYMPH % 42.5 % (24.0-44.0); MEAN CORPUSCULAR HEMOGLOBIN 28.9 pg (27.0-33.0); MEAN CORPUSCULAR HGB CONC 33.7 g/dl (32.0-36.5); MEAN CORPUSCULAR VOLUME 85.7 fl (80.0-96.0); MONO # 0.6 10^3/uL (0.0-0.8); MONO % 8.4 % (2.0-8.0); NEUTROPHILS # 2.9 10^3/uL (1.5-8.5); NEUTROPHILS % 40.5 % (36.0-66.0); PLATELET COUNT, AUTOMATED 269 10^3/uL (150-450); RED BLOOD COUNT 5.44 10^6/uL (4.30-6.10); WHITE BLOOD COUNT 7.2 10^3/uL (4.0-10.0)
[2022-08-03 21:06] LABS: ABG HCO3 25.3 MEQ/L (22.0-26.0); ABG O2 SATURATION 97.6 % (95.0-99.0); ABG PARTIAL PRESSURE CO2 36.1 mmHg (35.0-45.0); ABG PARTIAL PRESSURE O2 90.1 mmHg (75.0-100.0); ABG STANDARD HCO3 26.2 MEQ/L (22.0-26.0); ABG TOTAL CO2 26.4 MEQ/L (22.0-29.0); ABG pH (ARTERIAL) 7.464 UNITS (7.350-7.450)
[2022-08-03 21:19] LABS: INR 0.84; PROTHROMBIN TIME 11.9 SECONDS (12.7-14.5)
[2022-08-03 21:39] LABS: ALT/SGPT 30 U/L (12-78); BILIRUBIN,DIRECT 0.1 MG/DL (0.0-0.2); BILIRUBIN,TOTAL 0.3 MG/DL (0.2-1.0); BLOOD UREA NITROGEN 11 MG/DL (7-18); CALCIUM LEVEL 8.9 MG/DL (8.5-10.1); CARBON DIOXIDE LEVEL 29 MEQ/L (21-32); CHLORIDE LEVEL 107 MEQ/L (98-107); CREATININE FOR GFR 0.97 MG/DL (0.70-1.30); GLOMERULAR FILTRATION RATE > 60.0 (>60); GLUCOSE, FASTING 86 MG/DL (70-100); NT-PRO BNP 15 PG/ML (<125); POTASSIUM SERUM 3.9 MEQ/L (3.5-5.1); SODIUM LEVEL 139 MEQ/L (136-145); TOTAL PROTEIN 7.1 GM/DL (6.4-8.2)
[2022-08-03 22:01] VITALS: BP 129/77
[2022-08-03] MEDS ORDERED: ADV250INH INH (22:12)
[2022-08-03] MEDS ORDERED: PROAAER10 INH (22:12)
[2022-08-03] MEDS ORDERED: ALBUTEROL 90 MCG/ACT 8GM HFA INHALER INH ONE (22:30)
== END 2022-08-03 22:36 | disposition home or self-care (01) ==
LOC: M ED 19:34
DX: J45.901 Unspecified asthma with (acute) exacerbation (principal); Z79.51 Long term (current) use of inhaled steroids; Z88.0 Allergy status to penicillin; Z88.1 Allergy status to other antibiotic agents; Z88.8 Allergy status to other drugs, medicaments and biological substances
CPT/HCPCS: 71045; 80048; 80076; 82803; 83880; 85025; 85610; 87486; 87581; 87633; 87798; 93005; 93041; 94760; 96374; 99284; J2930

== ENCOUNTER 2022-09-08 05:11 | Emergency (ER) | payer MEDICARE ==
[~2022-09-08] VITALS: Ht 172.7 cm; Wt 78.9 kg
[2022-09-08 05:11] VITALS: BP 124/75
[~2022-09-08 05:11] MED LIST changes: +ADV250INH INH
[2022-09-08] MEDS ORDERED: DULO30CA9 PO (05:29)
[2022-09-08] MEDS ORDERED: MONT10TA97 PO (05:29)
[2022-09-08] MEDS ORDERED: NS 1,000 ML IV ONE (07:05)
[2022-09-08] MEDS ORDERED: ONDANSETRON 4MG 2ML VIAL IV ONE (07:05)
[2022-09-08 08:00] LABS: BASO % 0.4 % (0.0-1.0); EOS # 0.4 10^3/uL (0.0-0.5); EOS % 5.5 % (0.0-3.0); HEMATOCRIT 46.1 % (42.0-52.0); HEMOGLOBIN 15.5 g/dl (13.5-17.5); LYMPH # 0.5 10^3/uL (1.5-5.0); LYMPH % 6.2 % (24.0-44.0); MEAN CORPUSCULAR HEMOGLOBIN 28.9 pg (27.0-33.0); MEAN CORPUSCULAR HGB CONC 33.6 g/dl (32.0-36.5); MONO # 0.7 10^3/uL (0.0-0.8); MONO % 10.3 % (2.0-8.0); NEUTROPHILS # 5.5 10^3/uL (1.5-8.5); NEUTROPHILS % 76.9 % (36.0-66.0); PLATELET COUNT, AUTOMATED 222 10^3/uL (150-450); RED BLOOD COUNT 5.36 10^6/uL (4.30-6.10); WHITE BLOOD COUNT 7.2 10^3/uL (4.0-10.0)
[2022-09-08 08:01] LABS: ALBUMIN 4.1 GM/DL (3.2-5.2); ALT/SGPT 28 U/L (12-78); BILIRUBIN,DIRECT 0.1 MG/DL (0.0-0.2); BILIRUBIN,TOTAL 0.3 MG/DL (0.2-1.0); BLOOD UREA NITROGEN 8 MG/DL (7-18); CALCIUM LEVEL 9.1 MG/DL (8.5-10.1); CARBON DIOXIDE LEVEL 27 MEQ/L (21-32); CHLORIDE LEVEL 105 MEQ/L (98-107); GLOMERULAR FILTRATION RATE > 60.0 (>60); GLUCOSE, FASTING 96 MG/DL (70-100); LIPASE 125 U/L (73-393); POTASSIUM SERUM 4.3 MEQ/L (3.5-5.1); SODIUM LEVEL 138 MEQ/L (136-145); TOTAL PROTEIN 7.2 GM/DL (6.4-8.2)
[2022-09-08] MEDS ORDERED: ONDA4TAB6 PO (08:21)
[2022-09-08] MEDS ORDERED: ALBU6.7H6 INH (08:29)
== END 2022-09-08 08:56 | disposition home or self-care (01) ==
LOC: M ED 05:11
DX: U07.1 COVID-19 (principal); R11.10 Vomiting, unspecified; F43.10 Post-traumatic stress disorder, unspecified; F90.9 Attention-deficit hyperactivity disorder, unspecified type; F90.0 Attention-deficit hyperactivity disorder, predominantly inattentive type; Z87.442 Personal history of urinary calculi; Z88.0 Allergy status to penicillin; Z88.1 Allergy status to other antibiotic agents; Z88.8 Allergy status to other drugs, medicaments and biological substances
CPT/HCPCS: 80048; 80076; 83690; 85025; 87486; 87581; 87633; 87798; 96361; 96374; 99284; J2405

== ENCOUNTER 2022-12-13 01:49 | Emergency (ER) | payer MEDICARE ==
[~2022-12-13] VITALS: Ht 172.7 cm; Wt 80.0 kg
[~2022-12-13 01:49] MED LIST changes: +DULO30CA9 PO; +ONDA4TAB6 PO
[2022-12-13] MEDS ORDERED: ALBUTEROL SULFATE 2.5MG/0.5ML INH NEB SOLN NEB ONE ×4 (02:10→04:00)
[2022-12-13 02:37] LABS: BASO % 0.3 % (0.0-1.0); EOS # 0.7 10^3/uL (0.0-0.5); EOS % 7.7 % (0.0-3.0); HEMATOCRIT 43.6 % (42.0-52.0); HEMOGLOBIN 14.8 g/dl (13.5-17.5); LYMPH # 1.2 10^3/uL (1.5-5.0); LYMPH % 13.4 % (24.0-44.0); MEAN CORPUSCULAR HEMOGLOBIN 29.6 pg (27.0-33.0); MEAN CORPUSCULAR HGB CONC 33.9 g/dl (32.0-36.5); MEAN CORPUSCULAR VOLUME 87.2 fl (80.0-96.0); MONO # 0.8 10^3/uL (0.0-0.8); MONO % 9.7 % (2.0-8.0); NEUTROPHILS # 5.9 10^3/uL (1.5-8.5); NEUTROPHILS % 68.8 % (36.0-66.0); PLATELET COUNT, AUTOMATED 246 10^3/uL (150-450); WHITE BLOOD COUNT 8.6 10^3/uL (4.0-10.0)
[2022-12-13 03:02] LABS: BLOOD UREA NITROGEN 8 MG/DL (9-23); CALCIUM LEVEL 8.3 MG/DL (8.5-10.1); CARBON DIOXIDE LEVEL 29 MMOL/L (20-31); CHLORIDE LEVEL 104 MMOL/L (98-107); CREATININE FOR GFR 1.06 MG/DL (0.70-1.30); GLOMERULAR FILTRATION RATE > 60.0 (>60); GLUCOSE, FASTING 96 MG/DL (60-100); MAGNESIUM LEVEL 1.8 MG/DL (1.8-2.4); POTASSIUM SERUM 3.8 MMOL/L (3.5-5.1); SODIUM LEVEL 141 MMOL/L (136-145)
[2022-12-13 04:04] LABS: ABG BASE EXCESS 1.5 (-2.0-2.0); ABG HCO3 24.4 MEQ/L (22.0-26.0); ABG O2 SATURATION 94.1 % (95.0-99.0); ABG PARTIAL PRESSURE CO2 33.8 mmHg (35.0-45.0); ABG PARTIAL PRESSURE O2 64.2 mmHg (75.0-100.0); ABG STANDARD HCO3 25.7 MEQ/L (22.0-26.0); ABG TOTAL CO2 25.4 MEQ/L (22.0-29.0); ABG pH (ARTERIAL) 7.476 UNITS (7.350-7.450)
[2022-12-13] MEDS ORDERED: guaiFENesin ER 600 MG TAB PO ONE (05:00)
[2022-12-13] MEDS ORDERED: ADV250INH INH (05:03)
[2022-12-13] MEDS ORDERED: AZIT500T5 PO (05:03)
[2022-12-13] MEDS ORDERED: PRED20TA PO (05:03)
[2022-12-13 05:58] VITALS: BP 132/69
[2022-12-13] MEDS ORDERED: AZITHROMYCIN 250MG TABLET PO ONE (06:00)
== END 2022-12-13 06:00 | disposition home or self-care (01) ==
LOC: M ED 01:49
DX: J45.901 Unspecified asthma with (acute) exacerbation (principal); Z79.899 Other long term (current) drug therapy; Z88.0 Allergy status to penicillin; Z88.8 Allergy status to other drugs, medicaments and biological substances

== ENCOUNTER 2024-03-07 19:26 | Emergency (ER) | payer MEDICARE ==
[~2024-03-07] VITALS: Ht 172.7 cm; Wt 74.8 kg
[~2024-03-07 19:26] MED LIST changes: +AZIT500T5 PO
[2024-03-07 21:16] VITALS: BP 142/86; TEMP 98.8; O2SAT 100
== END 2024-03-07 21:17 | disposition home or self-care (01) ==
LOC: M ED 19:26
DX: R19.06 Epigastric swelling, mass or lump (principal); J45.909 Unspecified asthma, uncomplicated; F32.A Depression, unspecified; Z79.899 Other long term (current) drug therapy; Z88.0 Allergy status to penicillin; Z88.1 Allergy status to other antibiotic agents; Z88.8 Allergy status to other drugs, medicaments and biological substances

== ENCOUNTER → 2025-04-02 | Outpatient (REF) | payer MEDICARE ==
[~2025-04-02] MED LIST changes: -ADV250INH INH; +ADVA1AER9 INH; +BUPR-670 PO; -BUPR1TAB52 PO; +ONDA-282 PO; -ONDA4TAB6 PO
[2025-04-02 18:33] LABS: ALBUMIN 4.3 G/DL (3.2-5.2); ALKALINE PHOSPHATASE 99 U/L (40-129); ALT/SGPT 36 U/L (7.0-40); AST/SGOT 25 U/L (<34); BILIRUBIN,TOTAL 0.5 MG/DL (0.3-1.2); BLOOD UREA NITROGEN 11 MG/DL (9-23); CALCIUM LEVEL 9.3 MG/DL (8.5-10.1); CARBON DIOXIDE LEVEL 30 MMOL/L (20-31); CHLORIDE LEVEL 101 MMOL/L (98-107); CHOLESTEROL LEVEL 136 MG/DL (<200); CREATININE FOR GFR 1.04 MG/DL (0.70-1.30); GLOMERULAR FILTRATION RATE > 90.0 (>60); GLUCOSE, FASTING 129 MG/DL (60-100); HDL CHOLESTEROL 48.5 MG/DL (>40); LDL CHOLESTEROL 65.1 MG/DL (<100); NON-HDL-C 87.5 MG/DL; POTASSIUM SERUM 4.2 MMOL/L (3.5-5.1); SODIUM LEVEL 138 MMOL/L (136-145); TOTAL PROTEIN 7.2 G/DL (5.7-8.2); TRIGLYCERIDES LEVEL 112 MG/DL (<150)
[2025-04-02 18:35] LABS: THYROID STIMULATING HORMONE 0.968 uIU/ML (0.55-4.78)
== END ==
LOC: M LAB REF 17:32
PROVIDERS: ATTEND Family Medicine Addiction Medicine
DX: Z13.228 Encounter for screening for other metabolic disorders (principal); Z79.899 Other long term (current) drug therapy

== ENCOUNTER → 2025-08-15 | Outpatient (REF) | payer MEDICARE, MEDICAID ==
[~2025-08-15] MED LIST changes: -IBUP-1022 PO; +IBUP600T42 PO
[2025-08-15 17:34] LABS: CALCIUM LEVEL 9.6 MG/DL (8.5-10.1); CARBON DIOXIDE LEVEL 30 MMOL/L (20-31); CHLORIDE LEVEL 100 MMOL/L (98-107); CREATININE FOR GFR 1.04 MG/DL (0.70-1.30); GLOMERULAR FILTRATION RATE > 90.0 (>60); POTASSIUM SERUM 4.6 MMOL/L (3.5-5.1); SODIUM LEVEL 137 MMOL/L (136-145)
[2025-08-15 17:38] LABS: ESTIMATED AVERAGE GLUCOSE 103.0 MG/DL (60-110)
== END ==
LOC: M LAB REF 16:17
PROVIDERS: ATTEND Family Medicine Addiction Medicine
DX: R73.9 Hyperglycemia, unspecified (principal)